=== PATIENT | male | born 1930 | race Caucasian/White ===

== ENCOUNTER → 2017-10-01 | Outpatient (CLI) | payer MEDICARE, OTHER ==
[~2017-10-01] MED LIST: ACET325S8 PO; CALTTAB PO; DIPH2%T PO; FLUN25I; GLIP5 PO; LASI20TA PO; LORTA5 PO; MELO15TA2 PO; NICO2GUM68 TOP; PRIN5TAB PO; PROT40TA PO; SPIR25 PO; SYNT88TA PO; TAMS0.4C67 PO; XARE20TA PO; ZOCO40TA PO
--- NOTE | 2017-10-08 10:54 | RSPPFT ---
DATE OF PROCEDURE: 10/01/17 COMMENTS: Spirometry with FVC of 2.8 predicted 3.4, FEV1 of 1.8 predicted 2.6, FEV1/FVC ratio 65% predicted 76%. The RV/TLC ratio is increased implying air trapping and a significant increase in airways resistance with RAW at 6.6 predicted 1.1. DLCO is 54% of predicted but within the predicted range when corrected for alveolar volume. IMPRESSION: On the basis of the above, patient has an obstructive lung defect with increased airways resistance and increased DLCO.
== END ==
LOC: HRSP 09:39
PROVIDERS: ATTEND Internal Medicine Cardiovascular Disease
DX: R06.02 Shortness of breath (principal)
CPT/HCPCS: 94060; 94726; 94729

== ENCOUNTER 2017-11-08 14:56 | Observation (INO) | payer MEDICARE, OTHER ==
[~2017-11-08] VITALS: Ht 175.3 cm; Wt 75.5 kg
[2017-11-08] VITALS (8 sets, daily range): BP systolic 97–123; BP diastolic 57–70; PULSE 58–74; RESP 16–20; TEMP 98.2–98.4; O2SAT 90–100
[2017-11-08 16:14] LABS: BASOPHIL # 0.1 TH/MM3 (0-0.2); BASOPHIL % 0.5 % (0.0-2.0); EOSINOPHIL # 0.1 TH/MM3 (0-0.4); EOSINOPHIL % 0.6 % (0.0-4.0); HEMATOCRIT 33.4 % (39.0-51.0); HEMOGLOBIN 10.3 GM/DL (13.0-17.0); LYMPH % 4.2 % (9.0-44.0); LYMPHOCYTE # 0.4 TH/MM3 (1.0-4.8); MEAN CELL VOLUME 73.6 FL (80.0-100.0); MEAN CORPUSCULAR HEMOGLOBIN 22.7 PG (27.0-34.0); MEAN CORPUSCULAR HGB CONC 30.8 % (32.0-36.0); MEAN PLATELET VOLUME 7.7 FL (7.0-11.0); MONO % 3.9 % (0.0-8.0); MONOCYTE # 0.4 TH/MM3 (0-0.9); NEUT % 90.8 % (16.0-70.0); PLATELET COUNT 435 TH/MM3 (150-450); RED BLOOD COUNT 4.54 MIL/MM3 (4.50-5.90); RED CELL DISTRIBUTION WIDTH 17.8 % (11.6-17.2)
[2017-11-08 16:24] LABS: INTERNATIONAL NORMALIZED RATIO 1.6 RATIO; PROTHROMBIN TIME - PATIENT 16.1 SEC (9.8-11.6)
[2017-11-08] MEDS ORDERED: GLIP5TAB8 PO (16:26)
[2017-11-08] MEDS ORDERED: LEVO88TA2 PO (16:26)
[2017-11-08] MEDS ORDERED: FURO20TA PO (16:26)
[2017-11-08 16:31] LABS: ALBUMIN 3.1 GM/DL (3.4-5.0); ALT (GPT) 138 U/L (12-78); AST (GOT) 127 U/L (15-37); BICARBONATE 27.6 MEQ/L (21.0-32.0); BLOOD UREA NITROGEN 43 MG/DL (7-18); CALCIUM 9.4 MG/DL (8.5-10.1); CHLORIDE 106 MEQ/L (98-107); GLOMERULAR FILTRATION RATE 34 ML/MIN (>89); GLUCOSE,RANDOM 94 MG/DL (74-106); MAGNESIUM 2.6 MG/DL (1.5-2.5); SODIUM (NA) 142 MEQ/L (136-145)
[2017-11-08 16:34] LABS: ALKALINE PHOSPHATASE 105 U/L (45-117); TOTAL BILIRUBIN ADULT 1.6 MG/DL (0.2-1.0); TOTAL PROTEIN 7.2 GM/DL (6.4-8.2); TROPONIN I 0.03 NG/ML (0.02-0.05)
--- NOTE | 2017-11-08 17:07 | RADRPT ---
EXAM DATE/TIME: 11/08/2017 16:40 [place] COMPARISON: No previous studies available for comparison. INDICATIONS : Shortness of breath for one week. MEDICAL HISTORY : None. SURGICAL HISTORY : Pacemaker. ENCOUNTER: Initial ACUITY: 1 day PAIN SCORE: 0/10 LOCATION: Bilateral chest FINDINGS: Diffuse prominent interstitial markings in the mid and upper lungs suggesting nonconsolidated interst itial infiltrates. The heart is mildly enlarged. Both hemidiaphragms remain fairly well delineated. M ild blunting of the left costophrenic angle suggests small pleural effusion. Cardiac pacer with [address] No evidence of pneumothorax. CONCLUSION: 1. Bilateral upper lung interstitial infiltrates. 2. Probable small left pleural effusion. Alhaji Brady MD on November 08, 2017 at 17:05 Board Certified Radiologist. This report was verified electronically.
[2017-11-08] MEDS ORDERED: FENO1TAB76 PO (17:26)
[2017-11-08] MEDS ORDERED: XARE15TA PO (17:26)
[2017-11-08] MEDS ORDERED: ATOR80TA45 PO (17:26)
[2017-11-08] MEDS ORDERED: TAMS5CAP PO (17:26)
[2017-11-08] MEDS ORDERED: RANI150T PO (17:26)
[2017-11-08] MEDS ORDERED: PACE400T PO (17:26)
[2017-11-08] MEDS ORDERED: AZITHROMYCIN INJ 500 MG in SODIUM CHLOR 0.9% 250 ML INJ 250 ML IV ONE (18:15)
[2017-11-08] MEDS ORDERED: cefTRIAXone INJ 1,000 MG in SODIUM CHLORIDE 0.9% INJ 100 ML IV ONE (18:15)
--- NOTE | 2017-11-08 18:15 | PD ---
HPI Chief Complaint: Respiratory Symptoms Time Seen by Provider: 16:21 Travel History International Travel<30 days: No Contact w/Intl Traveler<30days: No Traveled to known affect area: No History of Present Illness HPI 87 years old male arrives from the [place] due to shortness of breath bilateral lower extremity edema and low O2 sats. Evidently he has been gradually worsening over the past few weeks. Patient reports dyspnea on exertion and orthopnea. He reports a history of CHF and has been compliant Lasix. Urination has been normal. No cough or fever. PFSH Past Medical History Arthritis: Yes Heart Rhythm Problems: Yes (PACEMAKER medtronic) Cancer: Yes (PROSTRATE) Cardiovascular Problems: Yes (2 STENTS 2007) High Cholesterol: Yes Chemotherapy: No Diabetes: Yes Patient Takes Glucophage: No Endocrine: Yes Gastrointestinal Disorders: Yes GERD: Yes Glaucoma: No Genitourinary: Yes Hepatitis: No Hiatal Hernia: Yes Hypertension: Yes Immune Disorder: No Implanted Vascular Access Dvce: Yes Medical other: Yes Musculoskeletal: Yes Neurologic: Yes Psychiatric: No Reproductive: No Respiratory: No Radiation Therapy: Yes Thyroid Disease: Yes Ulcer: Yes Past Surgical History Abdominal Surgery: Yes Body Medical Devices: CARDIAC STENTS Cardiac Surgery: Yes (2 STENT, PACEMAKER, ABLATIONS (X2) ) Ear Surgery: No Endocrine Surgery: Yes (PARATHYROIDECTOMY) Eye Surgery: Yes (NAZARIO. CATARACT EXTRACT.) Genitourinary Surgery: Yes (VASECTOMY, PROSTATE SEED IMPL) Gynecologic Surgery: No Neurologic Surgery: No Oral Surgery: Yes (UPPP) Pacemaker: No Thoracic Surgery: No Other Surgery: Yes Social History Alcohol Use: Yes (SOCIAL) Tobacco Use: No (quit 45 years ago) Substance Use: No Allergies-Medications (Allergen,Severity, Reaction): Coded Allergies: bacitracin (Unverified Allergy, Severe, RASH. SKIN BREAKDOWN, 06/25/17) iodine (Unverified Allergy, Severe, 06/25/17) HIVES,SWELLING potassium iodide (Unverified Allergy, Severe, 06/25/17) HIVES,SWELLING povidone-iodine (Unverified Allergy, Severe, 06/25/17) HIVES,SWELLING sodium iodide (Unverified Allergy, Severe, 06/25/17) HIVES,SWELLING sodium iodide (Unverified Allergy, Severe, 06/25/17) HIVES,SWELLING Reported Meds & Prescriptions Reported Meds & Active Scripts Active Reported Pacerone (Amiodarone HCl) 400 Mg Tab 400 Mg PO DAILY Tricor (Fenofibrate) 48 Mg Tab 48 Mg PO DAILY Tke with food. Ranitidine (Ranitidine HCl) 150 Mg Tab 150 Mg PO DAILY Atorvastatin (Atorvastatin Calcium) 80 Mg Tab 80 Mg PO HS Flomax (Tamsulosin HCl) 0.4 Mg Cap 0.4 Mg PO HS Xarelto (Rivaroxaban) 15 Mg Tab 15 Mg PO DAILY Levothyroxine (Levothyroxine Sodium) 88 Mcg Tab 88 Mcg PO DAILY Glipizide 5 Mg Tab 5 Mg PO DAILY Take 30 minutes before a meal Furosemide 20 Mg Tab 20 Mg PO DAILY Review of Systems Except as stated in HPI: all other systems reviewed are Neg General / Constitutional: No: Fever Physical Exam Narrative GENERAL: 87-year-old male pleasant well-nourished well-developed no acute distress SKIN: Warm and dry. HEAD: Atraumatic. Normocephalic. EYES: Pupils equal and round. No scleral icterus. No injection or drainage. ENT: No nasal bleeding or discharge. Mucous membranes pink and moist. NECK: Trachea midline. No JVD. CARDIOVASCULAR: Regular rate and rhythm. RESPIRATORY: No accessory muscle use. Clear to auscultation. Breath sounds equal bilaterally. GASTROINTESTINAL: Abdomen soft, non-tender, nondistended. Hepatic and splenic margins not palpable. MUSCULOSKELETAL: Trace edema bilaterally. No warmth erythema or induration on either side. NEUROLOGICAL: Awake and alert. No obvious cranial nerve deficits. Motor grossly within normal limits. Five out of 5 muscle strength in the arms and legs. Normal speech. PSYCHIATRIC: Appropriate mood and affect; insight and judgment normal. Data Data Last Documented VS Vital Signs Date Time Temp Pulse Resp B/P (MAP) Pulse Ox O2 Delivery O2 Flow Rate FiO2 11/08/17 17:29 59 18 123/70 (87) 99 Nasal Cannula 2.00 11/08/17 14:57 98.4 VS reviewed Orders Orders Complete Blood Count With Diff (11/08/17 15:03) Comprehensive Metabolic Panel (11/08/17 15:03) B-Type Natriuretic Peptide (11/08/17 15:03) Act Partial Throm Time (Ptt) (11/08/17 15:03) Prothrombin Time / Inr (Pt) (11/08/17 15:03) Magnesium (Mg) (11/08/17 15:03) Ckmb (Isoenzyme) Profile (11/08/17 15:03) Troponin I (11/08/17 15:03) Electrocardiogram (11/08/17 15:03) Chest, Pa & Lat (11/08/17 15:03) CKMB (11/08/17 15:50) CKMB% (11/08/17 15:50) Blood Culture (11/08/17 18:03) Ceftriaxone Inj (Rocephin Inj) (11/08/17 18:15) Azithromycin Inj (Zithromax Inj) (11/08/17 18:15) Furosemide Inj (Lasix Inj) (11/08/17 18:45) Place In Observation (11/08/17 ) Vital Signs (Adult) Q4H (11/08/17 18:43) Activity Oob With Assistance (11/08/17 18:43) Diet Heart Healthy (11/08/17 Dinner) Sodium Chloride 0.9% Flush (Ns Flush) (11/08/17 18:45) Sodium Chloride 0.9% Flush (Ns Flush) (11/08/17 21:00) Acetaminophen (Tylenol) (11/08/17 18:45) Basic Metabolic Panel (Bmp) (11/09/17 06:00) Comprehensive Metabolic Panel (11/09/17 06:00) Naloxone Inj (Narcan Inj) (11/08/17 18:45) Docusate Sodium-Senna (Lanny-Colace) (11/08/17 21:00) Magnesium Hydroxide Liq (Milk Of Magnesi (11/08/17 18:45) Sennosides (Senokot) (11/08/17 18:45) Bisacodyl Supp (Dulcolax Supp) (11/08/17 18:45) Lactulose Liq (Lactulose Liq) (11/08/17 18:45) Enoxaparin Inj (Lovenox Inj) (11/08/17 19:00) Furosemide Inj (Lasix Inj) (11/09/17 09:00) Comprehensive Metabolic Panel (11/08/17 18:57) Ceftriaxone Inj (Rocephin Inj) (11/09/17 19:00) Azithromycin Inj (Zithromax Inj) (11/09/17 19:00) Admit Order (Ed Use Only) (11/08/17 ) Telephone Clerk Telegraph Office / Telemetry AURA.Q8H (11/08/17 19:14) Vital Signs (Adult) Q4H (11/08/17 19:14) Diet Heart Healthy (11/09/17 Breakfast) Activity Bed Rest (11/08/17 19:14) Labs Laboratory Tests Test 11/08/17 15:50 White Blood Count 10.0 TH/MM3 Red Blood Count 4.54 MIL/MM3 Hemoglobin 10.3 GM/DL Hematocrit 33.4 % Mean Corpuscular Volume 73.6 FL Mean Corpuscular Hemoglobin 22.7 PG Mean Corpuscular Hemoglobin Concent 30.8 % Red Cell Distribution Width 17.8 % Platelet Count 435 TH/MM3 Mean Platelet Volume 7.7 FL Neutrophils (%) (Auto) 90.8 % Lymphocytes (%) (Auto) 4.2 % Monocytes (%) (Auto) 3.9 % Eosinophils (%) (Auto) 0.6 % Basophils (%) (Auto) 0.5 % Neutrophils # (Auto) 9.0 TH/MM3 Lymphocytes # (Auto) 0.4 TH/MM3 Monocytes # (Auto) 0.4 TH/MM3 Eosinophils # (Auto) 0.1 TH/MM3 Basophils # (Auto) 0.1 TH/MM3 CBC Comment DIFF FINAL Differential Comment Prothrombin Time 16.1 SEC Prothromb Time International Ratio 1.6 RATIO Activated Partial Thromboplast Time 30.8 SEC Blood Urea Nitrogen 43 MG/DL Creatinine 1.90 MG/DL Random Glucose 94 MG/DL Total Protein 7.2 GM/DL Albumin 3.1 GM/DL Calcium Level 9.4 MG/DL Magnesium Level 2.6 MG/DL Alkaline Phosphatase 105 U/L Aspartate Amino Transf (AST/SGOT) 127 U/L Alanine Aminotransferase (ALT/SGPT) 138 U/L Total Bilirubin 1.6 MG/DL Sodium Level 142 MEQ/L Potassium Level 3.9 MEQ/L Chloride Level 106 MEQ/L Carbon Dioxide Level 27.6 MEQ/L Anion Gap 8 MEQ/L Estimat Glomerular Filtration Rate 34 ML/MIN Total Creatine Kinase 114 U/L Creatine Kinase MB 3.8 NG/ML Troponin I 0.03 NG/ML B-Type Natriuretic Peptide 894 PG/ML MDM Medical Decision Making Medical Screen Exam Complete: Yes Emergency Medical Condition: Yes Medical Record Reviewed: Yes Differential Diagnosis CHF, COPD, NSTEMI, anemia Narrative Course CBC & BMP Diagram 11/08/17 15:50 Total Protein 7.2, Albumin 3.1 L, Calcium Level 9.4, Magnesium Level 2.6 H, Alkaline Phosphatase 105, Aspartate Amino Transf (AST/SGOT) 127 H, Alanine Aminotransferase (ALT/SGPT) 138 H, Total Bilirubin 1.6 H CXR: possible interstitial infiltrates bilaterally admission for management of chf with possible pna d/w Dr Haynes Diagnosis Primary Impression: CHF (congestive heart failure) Additional Impression: PNA (pneumonia) Yayo Castro MD Nov 08, 2017 18:15
[2017-11-08] MEDS ORDERED: BISACODYL 10 MG SUPP RECTAL PRN (18:45)
[2017-11-08] MEDS ORDERED: SENNOSIDES 8.6 MG TAB PO PRN (18:45)
[2017-11-08] MEDS ORDERED: NALOXONE HCL 0.4 MG/ML AMP IV PUSH PRN (18:45)
[2017-11-08] MEDS ORDERED: LACTULOSE SYRUP 20 GM/30 ML CUP PO PRN (18:45)
[2017-11-08] MEDS ORDERED: SODIUM CHLORIDE 0.9% FLUSH 10 ML FLUSH IV FLUSH PRN (18:45)
[2017-11-08] MEDS ORDERED: ACETAMINOPHEN 325 MG TAB PO PRN (18:45)
[2017-11-08] MEDS ORDERED: MAGNESIUM HYDROXIDE SUSP 30 ML CUP PO PRN (18:45)
[2017-11-08] MEDS ORDERED: FUROSEMIDE 40 MG/4 ML VIAL IV PUSH ONE (18:45)
[2017-11-08] MEDS ORDERED: ENOXAPARIN SODIUM 30 MG/0.3 ML SYRINGE SQ SCH (19:00)
--- NOTE | 2017-11-08 19:41 | HHI.HP ---
HPI Service [facility] Primary Care Physician No Primary Care Physician Admission Diagnosis CHF Exacerbation; PNA Diagnoses: (1) CHF (congestive heart failure) Diagnosis: Principal (2) Renal insufficiency Diagnosis: Principal (3) A-fib Diagnosis: Principal (4) PNA (pneumonia) Diagnosis: Principal (5) DM (diabetes mellitus) Diagnosis: Principal Travel History International Travel<30 Days: No Contact w/Intl Traveler <30 Da: No Traveled to Known Affected Are: No History of Present Illness This is an 87-year-old male with a PMH of HTN, Hyperlipidemia, CAD s/p Stent, Pacemaker (Medtronic), CHF (Unknown EF), Prostate CA and DM [facility] to [facility]B and bilateral lower extremity edema. Per patient, symptoms have been ongoing for 1-2wks, now progressively worse over the last 1- 2 days. SOB mostly w/ exertion, improved at rest. Moderate severity. Denies fever, chills, cough or chest pain. On arrival, BP 114/57, HR 74, O2 sat 90% on RA, Afebrile. Hgb 10.3, previously 13.7 on 06/23/14. Creatinine 1.90, producing 1.70 on 06/24/14. Troponin 0.03. BNP 894. CXR bilateral upper lung interstitial infiltrates, probable small left pleural effusion. S/p Lasix 40mg IV and Rocephin/Zithro in ER. Review of Systems Except as stated in HPI: all other systems reviewed are Neg ROS: 14 point review of systems otherwise negative. Past Family Social History Past Medical History PMH: HTN, Hyperlipidemia, CAD s/p Stent, Pacemaker (Medtronic), CHF (Unknown EF ), Prostate CA and DM Past Surgical History PAST SURGICAL HISTORY: Cardiac Stent, Pacemaker, Parathyroidectomy, Bilateral Cataract Surgery, Vasectomy, Prostate Seeds Allergies: Coded Allergies: bacitracin (Unverified Allergy, Severe, RASH. SKIN BREAKDOWN, 06/25/17) iodine (Unverified Allergy, Severe, 06/25/17) HIVES,SWELLING potassium iodide (Unverified Allergy, Severe, 06/25/17) HIVES,SWELLING povidone-iodine (Unverified Allergy, Severe, 06/25/17) HIVES,SWELLING sodium iodide (Unverified Allergy, Severe, 06/25/17) HIVES,SWELLING sodium iodide (Unverified Allergy, Severe, 06/25/17) HIVES,SWELLING Family History PAST FAMILY HISTORY: Reviewed, positive for DM. Social History PAST SOCIAL HISTORY: Occasional alcohol. Negative for tobacco or drugs. Physical Exam Vital Signs Vital Signs Date Time Temp Pulse Resp B/P (MAP) Pulse Ox O2 Delivery O2 Flow Rate FiO2 11/08/17 17:29 59 18 123/70 (87) 99 Nasal Cannula 2.00 11/08/17 16:17 63 18 99 Room Air 11/08/17 15:18 61 20 100 Nasal Cannula 2.00 11/08/17 15:05 90 Nasal Cannula 2.00 11/08/17 14:57 98.4 74 16 114/57 (76) 90 Room Air Physical Exam PE: GENERAL: Pleasant elderly white male in no acute distress. HEENT: PERRLA, EOMI. No scleral icterus or conjunctival pallor. No lid lag or facial droop. CARDIOVASCULAR: Regular rate and rhythm. No obvious murmurs to auscultation. No chest tenderness to palpation. RESPIRATORY: No obvious rhonchi or wheezing. Clear to auscultation. Breath sounds equal bilaterally. GASTROINTESTINAL: Abdomen soft, non-tender, nondistended. BS normal. MUSCULOSKELETAL: Extremities without clubbing, cyanosis. 1+ edema. No obvious deformities. NEUROLOGICAL: Awake, alert and oriented x4. No focal neurologic deficits. Moving both upper and lower extremities spontaneously. Laboratory Laboratory Tests Test 11/08/17 15:50 White Blood Count 10.0 Red Blood Count 4.54 Hemoglobin 10.3 Hematocrit 33.4 Mean Corpuscular Volume 73.6 Mean Corpuscular Hemoglobin 22.7 Mean Corpuscular Hemoglobin Concent 30.8 Red Cell Distribution Width 17.8 Platelet Count 435 Mean Platelet Volume 7.7 Neutrophils (%) (Auto) 90.8 Lymphocytes (%) (Auto) 4.2 Monocytes (%) (Auto) 3.9 Eosinophils (%) (Auto) 0.6 Basophils (%) (Auto) 0.5 Neutrophils # (Auto) 9.0 Lymphocytes # (Auto) 0.4 Monocytes # (Auto) 0.4 Eosinophils # (Auto) 0.1 Basophils # (Auto) 0.1 CBC Comment DIFF FINAL Differential Comment Prothrombin Time 16.1 Prothromb Time International Ratio 1.6 Activated Partial Thromboplast Time 30.8 Blood Urea Nitrogen 43 Creatinine 1.90 Random Glucose 94 Total Protein 7.2 Albumin 3.1 Calcium Level 9.4 Magnesium Level 2.6 Alkaline Phosphatase 105 Aspartate Amino Transf (AST/SGOT) 127 Alanine Aminotransferase (ALT/SGPT) 138 Total Bilirubin 1.6 Sodium Level 142 Potassium Level 3.9 Chloride Level 106 Carbon Dioxide Level 27.6 Anion Gap 8 Estimat Glomerular Filtration Rate 34 Total Creatine Kinase 114 Creatine Kinase MB 3.8 Troponin I 0.03 B-Type Natriuretic Peptide 894 Date/Time Source Procedure Growth Status 11/08/17 18:28 Blood Peripheral Aerobic Blood Culture Pending Received 11/08/17 18:28 Blood Peripheral Anaerobic Blood Culture Pending Received Result Diagram: 11/08/17 1550 11/08/17 1550 Caprini VTE Risk Assessment Caprini VTE Risk Assessment: Mod/High Risk (score >= 2) Caprini Risk Assessment Model Point Value = 1 Point Value = 2 Point Value = 3 Point Value = 5 Age 41-60 Minor surgery BMI > 25 kg/m2 Swollen legs Varicose veins or History of unexplained or recurrent spontaneous Oral contraceptives or hormone replacement Sepsis (< 1 month) Serious lung disease, including pneumonia (< 1 month) Abnormal pulmonary function Acute myocardial infarction Congestive heart failure (< 1 month) History of inflammatory bowel disease Medical patient at bed rest Age 61-74 Arthroscopic surgery Major open surgery (> 45 min) Laparoscopic surgery (> 45 min) Malignancy Confined to bed (> 72 hours) Immobilizing plaster cast Central venous access Age >= 75 History of VTE Family history of VTE Factor V Leiden Prothrombin [id number] Lupus anticoagulant Anticardiolipin antibodies Elevated serum homocysteine Heparin-induced thrombocytopenia Other congenital or acquired thrombophilia Stroke (< 1 month) Elective arthroplasty Hip, pelvis, or leg fracture Acute spinal cord injury (< 1 month) Prophylaxis Regimen Total Risk Factor Score Risk Level Prophylaxis Regimen 0-1 Low Early ambulation 2 Moderate Order ONE of the following: *Sequential Compression Device (SCD) *Heparin 5000 units SQ BID 3-4 Higher Order ONE of the following medications: *Heparin 5000 units SQ TID *Enoxaparin/Lovenox 40 mg SQ daily (WT < 150 kg, CrCl > 30 mL/min) *Enoxaparin/Lovenox 30 mg SQ daily (WT < 150 kg, CrCl > 10-29 mL/min) *Enoxaparin/Lovenox 30 mg SQ BID (WT < 150 kg, CrCl > 30 mL/min) AND/OR *Sequential Compression Device (SCD) 5 or more Highest Order ONE of the following medications: *Heparin 5000 units SQ TID (Preferred with Epidurals) *Enoxaparin/Lovenox 40 mg SQ daily (WT < 150 kg, CrCl > 30 mL/min) *Enoxaparin/Lovenox 30 mg SQ daily (WT < 150 kg, CrCl > 10-29 mL/min) *Enoxaparin/Lovenox 30 mg SQ BID (WT < 150 kg, CrCl > 30 mL/min) AND *Sequential Compression Device (SCD) Assessment and Plan Problem List: (1) CHF (congestive heart failure) ICD Code: I50.9 - Heart failure, unspecified Status: Acute (2) PNA (pneumonia) ICD Code: J18.9 - Pneumonia, unspecified organism Status: Acute (3) Renal insufficiency ICD Code: N28.9 - Disorder of kidney and ureter, unspecified (4) A-fib ICD Code: I48.91 - Unspecified atrial fibrillation (5) DM (diabetes mellitus) ICD Code: E11.9 - Type 2 diabetes mellitus without complications Assessment and Plan A/P: 1. CHF: Acute on Chronic. EF unknown. Check Echo to eval for systolic/ diastolic dysfunction and EF. BNP 894, CXR w/ small pleural effusion, images reviewed by me. S/p Lasix 40mg IV in ER, continue w/ diuresis-caution w/ renal insufficiency, monitor I/O. 2. PNA: CXR w/ upper lung interstitial infiltrates, images reviewed by me. S/ p Rocephin/Zithro in ER, continue w/ IV Abx, DuoNeb prn as needed. Monitor O2. 3. Renal Insufficiency: Acute on Chronic. Creatinine 1.90, previously 1.70 on 06/24/14. Check U/a. Repeat labs in am, monitor I/O. 4. A-fib: Chronic. Resume home Amiodarone, Xarelto. Telemetry. 5. DM: Sliding scale w/ Accu-Cheks, resume Glipizide. 6. DVT Prophylaxis: Xarelto 7. Social work for d/c planning as needed. 8. Records/labs reviewed by me, case discussed w/ ER physician at length. Obdulia Torres MD Nov 08, 2017 19:41
[2017-11-08] MEDS ORDERED: RESP: ALBUTEROL 2.5 MG/IPRATROPIUM 0.5 MG NEB (PRN) NEB (19:45)
[2017-11-08] MEDS ORDERED: DEXTROSE 50% IN WATER 50 ML VIAL(D50) IV PUSH PRN (19:45)
[2017-11-08] MEDS ORDERED: GLUCAGON 1 MG/ML VIAL OTHER PRN (19:45)
[2017-11-08] MEDS: DOCUSATE SODIUM 50 MG/SENNA 8.6 MG TAB PO SCH (21:00)
[2017-11-08] MEDS: INSULIN ASPART SUPPLEMENTAL SCALE SQ SCH (21:00)
[2017-11-08 21:47] LABS: ALBUMIN 2.9 GM/DL (3.4-5.0); ALT (GPT) 129 U/L (12-78); AST (GOT) 119 U/L (15-37); BICARBONATE 26.9 MEQ/L (21.0-32.0); BLOOD UREA NITROGEN 42 MG/DL (7-18); CHLORIDE 107 MEQ/L (98-107); CREATININE 1.93 MG/DL (0.60-1.30); GLOMERULAR FILTRATION RATE 33 ML/MIN (>89); GLUCOSE,RANDOM 58 MG/DL (74-106); SODIUM (NA) 144 MEQ/L (136-145)
[2017-11-08 21:50] LABS: ALKALINE PHOSPHATASE 98 U/L (45-117); TOTAL BILIRUBIN ADULT 1.5 MG/DL (0.2-1.0); TOTAL PROTEIN 6.9 GM/DL (6.4-8.2)
[2017-11-08] MEDS: ATORVASTATIN 80 MG TAB PO SCH (22:23)
[2017-11-08] MEDS: TAMSULOSIN HCL 0.4 MG CAP PO SCH (22:23)
[2017-11-08] MEDS: SODIUM CHLORIDE 0.9% FLUSH 10 ML FLUSH IV FLUSH SCH (22:25)
[2017-11-09] VITALS (27 sets, daily range): BP systolic 86–123; BP diastolic 53–71; PULSE 58–73; RESP 14–18; TEMP 97.4–98.6; O2SAT 93–99
[2017-11-09 04:53] LABS: AUTOMATED NEUTROPHIL # 7.9 TH/MM3 (1.8-7.7); BASOPHIL # 0.1 TH/MM3 (0-0.2); BASOPHIL % 0.7 % (0.0-2.0); EOSINOPHIL # 0.1 TH/MM3 (0-0.4); EOSINOPHIL % 0.8 % (0.0-4.0); HEMATOCRIT 26.8 % (39.0-51.0); HEMOGLOBIN 8.4 GM/DL (13.0-17.0); LYMPH % 4.2 % (9.0-44.0); LYMPHOCYTE # 0.4 TH/MM3 (1.0-4.8); MEAN CELL VOLUME 72.8 FL (80.0-100.0); MEAN CORPUSCULAR HEMOGLOBIN 22.9 PG (27.0-34.0); MEAN CORPUSCULAR HGB CONC 31.5 % (32.0-36.0); MEAN PLATELET VOLUME 7.6 FL (7.0-11.0); MONO % 5.9 % (0.0-8.0); MONOCYTE # 0.5 TH/MM3 (0-0.9); NEUT % 88.4 % (16.0-70.0); PLATELET COUNT 350 TH/MM3 (150-450); RED BLOOD COUNT 3.68 MIL/MM3 (4.50-5.90); RED CELL DISTRIBUTION WIDTH 17.7 % (11.6-17.2); WHITE BLOOD COUNT 8.9 TH/MM3 (4.0-11.0)
[2017-11-09 05:18] LABS: ALBUMIN 2.5 GM/DL (3.4-5.0); ALT (GPT) 104 U/L (12-78); AST (GOT) 97 U/L (15-37); BICARBONATE 29.5 MEQ/L (21.0-32.0); BLOOD UREA NITROGEN 43 MG/DL (7-18); CALCIUM 8.8 MG/DL (8.5-10.1); CHLORIDE 109 MEQ/L (98-107); CREATININE 1.86 MG/DL (0.60-1.30); GLOMERULAR FILTRATION RATE 35 ML/MIN (>89); GLUCOSE,RANDOM 107 MG/DL (74-106); SODIUM (NA) 146 MEQ/L (136-145)
[2017-11-09 05:21] LABS: ALKALINE PHOSPHATASE 89 U/L (45-117); TOTAL BILIRUBIN ADULT 1.1 MG/DL (0.2-1.0); TOTAL PROTEIN 5.8 GM/DL (6.4-8.2)
[2017-11-09] MEDS: LEVOTHYROXINE SODIUM 88 MCG TAB PO SCH (06:04)
[2017-11-09] MEDS: INSULIN ASPART SUPPLEMENTAL SCALE SQ SCH ×4 (08:00→21:00)
[2017-11-09] MEDS: DOCUSATE SODIUM 50 MG/SENNA 8.6 MG TAB PO SCH ×2 (09:00→21:11)
[2017-11-09] MEDS: FUROSEMIDE 40 MG/4 ML VIAL IV PUSH SCH ×2 (09:40→17:16)
[2017-11-09] MEDS: glipiZIDE 5 MG TAB PO SCH (09:40)
[2017-11-09] MEDS: FENOFIBRATE 48 MG TAB PO SCH (09:40)
[2017-11-09] MEDS: AMIODARONE 200 MG TAB PO SCH (09:40)
[2017-11-09] MEDS: FAMOTIDINE 20 MG TAB PO SCH (09:40)
[2017-11-09] MEDS: RIVAROXABAN 15 MG TAB PO SCH (09:41)
[2017-11-09] MEDS: SODIUM CHLORIDE 0.9% FLUSH 10 ML FLUSH IV FLUSH SCH ×2 (09:41→21:12)
[2017-11-09 12:04] LABS: BILIRUBIN, URINE NEG (NEG); BLOOD, URINE NEG (NEG); GLUCOSE,URINE NEG (NEG); HYALINE CAST, URINE 3 /lpf (RARE); KETONE, URINE NEG (NEG); MUCUS URINE FEW /lpf (OCC); NITRITE,URINE NEG (NEG); SQUAMOUS EPITHELIAL CELL URINE <1 /hpf (0-5); URINE COLOR LIGHT-YELLOW (YELLW/STRAW); URINE LEUKOCYTE ESTERASE NEG (NEG)
--- NOTE | 2017-11-09 17:43 | HHI.PR ---
Subjective Remarks 87M admitted under observation status for CHF exacerbation and likely pneumonia. He denies any fevers or malaise leading up to this, but does say that he had dyspnea worsening over 1-2 weeks. He is feeling better this morning after urinating out lots of fluid overnight. Objective Vitals Vital Signs Date Time Temp Pulse Resp B/P (MAP) Pulse Ox O2 Delivery O2 Flow Rate FiO2 11/09/17 17:00 60 11/09/17 16:00 60 11/09/17 15:00 59 11/09/17 15:00 60 14 123/70 (87) 96 11/09/17 14:00 59 11/09/17 13:00 60 11/09/17 12:00 59 11/09/17 11:00 59 11/09/17 11:00 98.6 60 16 108/62 (77) 95 11/09/17 10:00 67 11/09/17 09:00 61 11/09/17 08:00 97.4 63 16 86/69 (75) 98 11/09/17 08:00 69 11/09/17 07:00 60 11/09/17 06:00 64 11/09/17 05:00 58 11/09/17 04:30 67 18 90/53 (65) 95 11/09/17 04:00 58 11/09/17 03:00 60 11/09/17 02:00 60 11/09/17 01:00 58 11/09/17 00:06 60 16 95/53 (67) 93 11/09/17 00:00 60 11/08/17 23:00 59 11/08/17 22:00 58 11/08/17 21:00 98.2 68 16 97/57 (70) 96 11/08/17 20:55 61 11/08/17 20:14 11/08/17 20:00 98 Nasal Cannula 2.00 I/O 11/08/17 11/08/17 11/08/17 11/09/17 11/09/17 11/09/17 07:00 15:00 23:00 07:00 15:00 23:00 Intake Total 350 ml 400 ml 1680 ml Output Total 650 ml 1275 ml Balance 350 ml -250 ml 405 ml Intake Oral 400 ml 1680 ml IV Total 350 ml Output Urine Total 650 ml 1275 ml # Bowel Movements 0 Result Diagram: 11/09/1742511/09/17 042 Objective Remarks GENERAL: Well-nourished, well-developed patient. SKIN: Warm and dry. HEAD: Normocephalic. EYES: No scleral icterus. No injection or drainage. NECK: Supple, trachea midline. No JVD or lymphadenopathy. CARDIOVASCULAR: Regular rate and rhythm without murmurs, gallops, or rubs. RESPIRATORY: Breath sounds equal bilaterally. No accessory muscle use. GASTROINTESTINAL: Abdomen soft, non-tender, nondistended. MUSCULOSKELETAL: No cyanosis, or edema. BACK: Nontender without obvious deformity. No CVA tenderness. EXTREMITIES: no edema A/P Problem List: (1) CHF (congestive heart failure) ICD Code: I50.9 - Heart failure, unspecified Status: Acute (2) PNA (pneumonia) ICD Code: J18.9 - Pneumonia, unspecified organism Status: Acute (3) Renal insufficiency ICD Code: N28.9 - Disorder of kidney and ureter, unspecified (4) A-fib ICD Code: I48.91 - Unspecified atrial fibrillation (5) DM (diabetes mellitus) ICD Code: E11.9 - Type 2 diabetes mellitus without complications Assessment and Plan CHF Exacerbation Based on history and BNP, responded favorably to diuretics Ambulate with PT in preparation for discharge soon Pneumonia Community aquired Continue Rocephin and Azithromycin Atrial Fibrillation Stable Type 2 diabetes Stable DVT Prophylaxis Mohan Oconnor MD Nov 09, 2017 17:43
[2017-11-09 20:06] LABS: ALBUMIN 2.5 GM/DL (3.4-5.0); AST (GOT) 91 U/L (15-37); BICARBONATE 26.7 MEQ/L (21.0-32.0); BLOOD UREA NITROGEN 40 MG/DL (7-18); CALCIUM 8.7 MG/DL (8.5-10.1); CHLORIDE 106 MEQ/L (98-107); CREATININE 1.65 MG/DL (0.60-1.30); GLOMERULAR FILTRATION RATE 40 ML/MIN (>89); GLUCOSE,RANDOM 72 MG/DL (74-106); SODIUM (NA) 142 MEQ/L (136-145)
[2017-11-09 20:07] LABS: ALT (GPT) 99 U/L (12-78)
[2017-11-09 20:09] LABS: ALKALINE PHOSPHATASE 88 U/L (45-117); TOTAL BILIRUBIN ADULT 1.1 MG/DL (0.2-1.0); TOTAL PROTEIN 6.1 GM/DL (6.4-8.2)
[2017-11-09] MEDS: ATORVASTATIN 80 MG TAB PO SCH (21:11)
[2017-11-09] MEDS: TAMSULOSIN HCL 0.4 MG CAP PO SCH (21:12)
[2017-11-09] MEDS: AZITHROMYCIN INJ 500 MG in SODIUM CHLOR 0.9% 250 ML INJ 250 ML IV SCH (21:13)
[2017-11-09] MEDS: cefTRIAXone INJ 1,000 MG in SODIUM CHLORIDE 0.9% INJ 100 ML IV SCH (21:13)
[2017-11-10] VITALS (27 sets, daily range): BP systolic 99–122; BP diastolic 62–74; PULSE 58–79; RESP 16–18; TEMP 97.8–97.9; O2SAT 94–97
[2017-11-10] MEDS: LEVOTHYROXINE SODIUM 88 MCG TAB PO SCH (06:16)
[2017-11-10] MEDS: INSULIN ASPART SUPPLEMENTAL SCALE SQ SCH ×4 (08:00→21:00)
[2017-11-10] MEDS: AMIODARONE 200 MG TAB PO SCH (10:52)
[2017-11-10] MEDS: SODIUM CHLORIDE 0.9% FLUSH 10 ML FLUSH IV FLUSH SCH ×2 (10:52→23:30)
[2017-11-10] MEDS: RIVAROXABAN 15 MG TAB PO SCH (10:52)
[2017-11-10] MEDS: FAMOTIDINE 20 MG TAB PO SCH (10:52)
[2017-11-10] MEDS: glipiZIDE 5 MG TAB PO SCH (10:52)
[2017-11-10] MEDS: FENOFIBRATE 48 MG TAB PO SCH (10:52)
[2017-11-10] MEDS: FUROSEMIDE 40 MG/4 ML VIAL IV PUSH SCH ×2 (10:52→18:05)
[2017-11-10] MEDS: DOCUSATE SODIUM 50 MG/SENNA 8.6 MG TAB PO SCH ×2 (10:52→23:31)
--- NOTE | 2017-11-10 14:32 | EKG ---
Date Performed: 11/08/2017 Time Performed: 15:58:15 PTAGE: 87 years EKG: ELECTRONIC ATRIAL PACEMAKER ELECTRONIC VENTRICULAR PACEMAKER Compared to prior tracing no s ignificant change ABNORMAL RHYTHM ECG PREVIOUS TRACING : 06/24/2014 06.31 DOCTOR: Regulo Mcduffie Interpretating Date/Time 11/10/2017 14:30:15
--- NOTE | 2017-11-10 15:18 | HHI.PR ---
Subjective Remarks Pt was evaluated by physical therapy, could not ambulate far without needing oxygen. This does not match his physical exam which shows mostly clear lung jade. Objective Vitals Vital Signs Date Time Temp Pulse Resp B/P (MAP) Pulse Ox O2 Delivery O2 Flow Rate FiO2 11/10/17 12:00 60 11/10/17 11:00 61 16 122/74 (90) 96 11/10/17 11:00 61 11/10/17 10:00 60 11/10/17 09:00 78 11/10/17 08:00 79 11/10/17 08:00 97.8 64 16 122/68 (86) 96 11/10/17 07:00 60 11/10/17 06:17 97.9 67 16 117/67 (84) 94 11/10/17 06:00 67 11/10/17 05:00 63 11/10/17 04:00 60 11/10/17 03:00 59 11/10/17 02:00 60 11/10/17 01:00 59 11/10/17 00:00 58 11/09/17 23:43 97.9 73 16 102/57 (72) 95 11/09/17 23:00 60 11/09/17 22:00 58 11/09/17 21:00 60 11/09/17 20:00 65 11/09/17 20:00 97.9 65 16 119/71 (87) 99 11/09/17 19:00 59 11/09/17 18:00 59 11/09/17 17:00 60 11/09/17 16:00 60 I/O 11/09/17 11/09/17 11/09/17 11/10/17 11/10/17 11/10/17 07:00 15:00 23:00 07:00 15:00 23:00 Intake Total 400 ml 1780 ml 240 ml Output Total 650 ml 1275 ml 200 ml Balance -250 ml 505 ml 40 ml Intake Oral 400 ml 1680 ml 240 ml IV Total 100 ml Output Urine Total 650 ml 1275 ml 200 ml Stool Total 0 ml # Voids 1 # Bowel Movements 0 Result Diagram: 11/09/17 0426 11/09/171928 Objective Remarks GENERAL: Well-nourished, well-developed patient. SKIN: Warm and dry. HEAD: Normocephalic. EYES: No scleral icterus. No injection or drainage. NECK: Supple, trachea midline. No JVD or lymphadenopathy. CARDIOVASCULAR: Regular rate and rhythm without murmurs, gallops, or rubs. RESPIRATORY: Breath sounds equal bilaterally. No accessory muscle use. GASTROINTESTINAL: Abdomen soft, non-tender, nondistended. MUSCULOSKELETAL: No cyanosis, or edema. BACK: Nontender without obvious deformity. No CVA tenderness. EXTREMITIES: no edema A/P Problem List: (1) CHF (congestive heart failure) ICD Code: I50.9 - Heart failure, unspecified Status: Acute (2) PNA (pneumonia) ICD Code: J18.9 - Pneumonia, unspecified organism Status: Acute (3) Renal insufficiency ICD Code: N28.9 - Disorder of kidney and ureter, unspecified (4) A-fib ICD Code: I48.91 - Unspecified atrial fibrillation (5) DM (diabetes mellitus) ICD Code: E11.9 - Type 2 diabetes mellitus without complications Assessment and Plan CHF Exacerbation BNP improved, but patient remains oxygen dependant Did not ambulate very far with PT, needed oxygen Exam shows no ankle edema and lungs are clear Mismatch of exam and performance raises concern for pulmonary embolism, will check STAT D-Dimer Pneumonia Continue Rocephin and Azithromycin Atrial Fibrillation Stable Type 2 diabetes Stable DVT Prophylaxis Mohan Oconnor MD Nov 10, 2017 15:18
--- NOTE | 2017-11-10 19:04 | RADRPT ---
EXAM DATE/TIME: 11/10/2017 18:04 [facility] COMPARISON: No previous studies available for comparison. INDICATIONS : Bilateral leg swelling. MEDICAL HISTORY : Hypercholesterolemia. Gastroesophageal reflux disease. Thyroid disease. Dentures. Hiatal hernia. Ulc er. Prostate cancer. Arthritis. Diabetes. SURGICAL HISTORY : Pacemaker. Bilateral cataract removal. Cardiac stents. Parathyroidectomy. ENCOUNTER: Initial ACUITY: 1 day PAIN SCORE: 0/10 LOCATION: Bilateral legs. TECHNIQUE: Venous ultrasound of the left and right leg was performed from the inguinal ligament to the proximal calf. Real-time, color Doppler and spectral tracing, compression and augmentation techniques were us ed. FINDINGS: RIGHT LEG: There is normal compressibility of the deep venous system from the inguinal region to the proximal ca lf. No echogenic clot is seen in the lumen of the common femoral, femoral, popliteal, and posterior tibial veins. There is a normal response of the venous system to proximal and distal augmentation an d respiration. LEFT LEG: There is normal compressibility of the deep venous system from the inguinal region to the proximal ca lf. No echogenic clot is seen in the lumen of the common femoral, femoral, popliteal, and posterior tibial veins. There is a normal response of the venous system to proximal and distal augmentation an d respiration. CONCLUSION: Normal examination. Veda Alberts MD on November 10, 2017 at 19:02 Board Certified Radiologist. This report was verified electronically.
[2017-11-10] MEDS ORDERED: EPINEPHrine HCL (1:10,000) 1 MG/10 ML SYRINGE ONE (20:11)
[2017-11-10] MEDS ORDERED: ATROPINE SULFATE 1 MG/10 ML SYRINGE ONE (20:11)
--- NOTE | 2017-11-10 21:05 | RADRPT ---
EXAM DATE/TIME: 11/10/2017 20:25 [facility] COMPARISON: CHEST PA & LAT, November 08, 2017, 16:40. INDICATIONS : Short of Breath MEDICAL HISTORY : Gastroesophageal reflux disease Thyroid disease. Prostate cancer Diabetes. SURGICAL HISTORY : Pacemaker. Cardiac stents. Parathyroidectomy ENCOUNTER: Subsequent ACUITY: 1 day PAIN SCORE: 0/10 LOCATION: Bilateral chest FINDINGS: Left subclavian pacer wires are present with tips in the right atrium and right ventricle. Slight quita ateral parenchymal infiltrates mainly interstitial is identified not significantly changed. Slight ca rdiomegaly is seen. CONCLUSION: No appreciable change. Veda Alberts MD on November 10, 2017 at 21:02 Board Certified Radiologist. This report was verified electronically.
--- NOTE | 2017-11-10 21:06 | RADRPT ---
EXAM DATE/TIME: 11/10/2017 20:33 [facility] COMPARISON: CHEST PA & LAT, November 10, 2017, 20:25. INDICATIONS : Short of breath. DOSE: 8.2 mCi Tc99m MAA IV 2.9 mCi Tc99m DTPA aerosol MEDICAL HISTORY : Carcinoma, prostate. Hypertension. Smoking history. SURGICAL HISTORY : Coronary artery stent. ENCOUNTER: Initial ACUITY: 1 day PAIN SCALE: 2/10 LOCATION: Bilateral chest TECHNIQUE: Following five minutes of tidal breathing of DTPA aerosol, planar images of the lungs were performed in eight projections. The patient was then injected with MAA, and eight-view perfusion scan was perf ormed. FINDINGS: The ventilation is very patchy with multiple subsegmental ventilatory defects bilaterally correspondi ng to COPD changes and parenchymal infiltrates on the patient's chest x-ray. The perfusion demonstrat es matching defects in some of these areas. CONCLUSION: Low probability for pulmonary embolus. Veda Alberts MD on November 10, 2017 at 21:03 Board Certified Radiologist. This report was verified electronically.
[2017-11-10] MEDS: cefTRIAXone INJ 1,000 MG in SODIUM CHLORIDE 0.9% INJ 100 ML IV SCH (23:29)
[2017-11-10] MEDS: AZITHROMYCIN INJ 500 MG in SODIUM CHLOR 0.9% 250 ML INJ 250 ML IV SCH (23:29)
[2017-11-10] MEDS: TAMSULOSIN HCL 0.4 MG CAP PO SCH (23:30)
[2017-11-10] MEDS: ATORVASTATIN 80 MG TAB PO SCH (23:31)
[2017-11-11] VITALS (28 sets, daily range): BP systolic 108–132; BP diastolic 62–73; PULSE 58–122; RESP 16–18; TEMP 98–98.4; O2SAT 90–97
[2017-11-11] MEDS: LEVOTHYROXINE SODIUM 88 MCG TAB PO SCH (05:51)
[2017-11-11] MEDS: INSULIN ASPART SUPPLEMENTAL SCALE SQ SCH ×4 (08:00→21:00)
[2017-11-11] MEDS: FUROSEMIDE 40 MG/4 ML VIAL IV PUSH SCH ×2 (09:00→17:44)
[2017-11-11] MEDS: SODIUM CHLORIDE 0.9% FLUSH 10 ML FLUSH IV FLUSH SCH ×2 (09:00→19:45)
[2017-11-11] MEDS: glipiZIDE 5 MG TAB PO SCH (09:00)
[2017-11-11] MEDS: AMIODARONE 200 MG TAB PO SCH (09:44)
[2017-11-11] MEDS: RIVAROXABAN 15 MG TAB PO SCH (09:45)
[2017-11-11] MEDS: DOCUSATE SODIUM 50 MG/SENNA 8.6 MG TAB PO SCH ×2 (09:45→19:44)
[2017-11-11] MEDS: FENOFIBRATE 48 MG TAB PO SCH (09:45)
[2017-11-11] MEDS: FAMOTIDINE 20 MG TAB PO SCH (09:45)
[2017-11-11] MEDS ORDERED: RESP: ALBUTEROL 2.5 MG/IPRATROPIUM 0.5 MG NEB (SCH) NEB ONE (14:15)
[2017-11-11] MEDS ORDERED: methylPREDNISolone SOD SUCC 125 MG/2 ML VIAL IV PUSH ONE (14:30)
--- NOTE | 2017-11-11 15:59 | ECHRPT ---
Indication: HEART FAILURE CONCLUSIONS Mildly dilated left ventricle. Wall thickness is normal. The left ventricular systolic function is severely reduced with an estimated ejection fraction in th e range of 20%. The right ventriclar size is upper limits of normal. The right ventricular systoilc function is mildly decreased. A pacemaker wire is noted. The left atrial size is mildly dilated. The right atrial size is moderately dilated. Mild mitral valve regurgitation. Mild aortic valve regurgitation. There is severe tricuspid regurgitation. There is estimated moderate to severe pulmonary hypertension present (68 mmHg). The pulmonary valve is not well visualized. BP: 90 / 53 HR: 64 Rhythm: MEASUREMENTS (Male / Female) Normal Values Technical Quality:Good 2D ECHO LV Diastolic Diameter PLAX 5.9 cm 4.2 - 5.9 / 3.9 - 5.3 cm LV Systolic Diameter PLAX 5.3 cm IVS Diastolic Thickness 1.2 cm 0.6 - 1.0 / 0.6 - 0.9 cm LVPW Diastolic Thickness 0.7 cm 0.6 - 1.0 / 0.6 - 0.9 cm LV Relative Wall Thickness 0.3 RV Internal Dim ED PLAX 2.5 cm LA Systolic Diameter LX 3.9 cm 3.0 - 4.0 / 2.7 - 3.8 cm M-MODE Aortic Root Diameter MM 3.3 cm AV Cusp Separation MM 2.1 cm DOPPLER AV Peak Velocity 159.0 cm/s AV Peak Gradient 10.1 mmHg AI Peak Velocity 342.0 cm/s AI Peak Gradient 46.8 mmHg AI Pressure Half Time 711.0 ms LVOT Peak Velocity 78.0 cm/s LVOT Peak Gradient 2.4 mmHg Mitral E Point Velocity 80.0 cm/s Mitral A Point Velocity 52.8 cm/s Mitral E to A Ratio 1.5 TR Peak Velocity 413.0 cm/s TR Peak Gradient 68.2 mmHg FINDINGS LEFT VENTRICLE Mildly dilated left ventricle. Wall thickness is normal. The left ventricular systolic function is severely reduced with an estimated ejection fraction in th e range of 20%. RIGHT VENTRICLE The right ventriclar size is upper limits of normal. The right ventricular systoilc function is mildly decreased. A pacemaker wire is noted. LEFT ATRIUM The left atrial size is mildly dilated. RIGHT ATRIUM The right atrial size is moderately dilated. ATRIAL SEPTUM Normal atrial septal thickness without atrial level shunting by limited color doppler interrogation. AORTA The aortic root and proximal ascending aorta are normal in size on limited imaging. MITRAL VALVE Mild mitral valve regurgitation. AORTIC VALVE Mild aortic valve regurgitation. TRICUSPID VALVE There is severe tricuspid regurgitation. There is estimated moderate to severe pulmonary hypertension present (68 mmHg). PULMONARY VALVE The pulmonary valve is not well visualized. VESSELS The inferior vena cava is normal in size. PERICARDIUM No pericardial effusion. Andrei Parks MD, FACC (Electronically Signed) Final Date:11 November 2017 15:57
--- NOTE | 2017-11-11 16:40 | HHI.PR ---
Subjective Remarks Pt still has dyspnea with exertion needing oxygen. His work up for elevated D- Dimer was negative. He does admit he smoked for about 16 years when he was younger. Objective Vitals Vital Signs Date Time Temp Pulse Resp B/P (MAP) Pulse Ox O2 Delivery O2 Flow Rate FiO2 11/11/17 16:00 60 11/11/17 15:06 98.1 66 18 110/62 (78) 97 11/11/17 15:00 61 11/11/17 14:00 62 11/11/17 13:00 60 11/11/17 12:00 60 11/11/17 11:22 98.4 64 18 112/64 (80) 96 11/11/17 11:00 67 11/11/17 10:00 60 11/11/17 09:00 60 11/11/17 08:00 60 11/11/17 07:30 98.2 65 16 123/69 (87) 95 11/11/17 07:00 59 11/11/17 06:00 59 11/11/17 05:00 58 11/11/17 04:00 66 11/11/17 03:07 98.1 65 16 132/73 (92) 90 11/11/17 03:00 60 11/11/17 02:00 58 11/11/17 01:00 58 11/11/17 00:00 66 11/10/17 23:30 97.9 60 16 99/67 (78) 95 11/10/17 23:00 61 11/10/17 22:00 62 11/10/17 21:00 62 11/10/17 20:00 70 11/10/17 19:48 97.9 61 16 116/70 (85) 95 11/10/17 19:00 59 11/10/17 18:00 70 11/10/17 17:00 60 I/O 11/10/17 11/10/17 11/10/17 11/11/17 11/11/17 11/11/17 07:00 15:00 23:00 07:00 15:00 23:00 Intake Total 240 ml 1200 ml 240 ml Output Total 200 ml 800 ml 700 ml Balance 40 ml 400 ml -460 ml Intake Oral 240 ml 1200 ml 240 ml Output Urine Total 200 ml 800 ml 700 ml Stool Total 0 ml # Voids 1 Result Diagram: 11/09/17 0426 11/09/17 1929 Objective Remarks GENERAL: Well-nourished, well-developed patient. SKIN: Warm and dry. HEAD: Normocephalic. EYES: No scleral icterus. No injection or drainage. NECK: Supple, trachea midline. No JVD or lymphadenopathy. CARDIOVASCULAR: Regular rate and rhythm without murmurs, gallops, or rubs. RESPIRATORY: Breath sounds equal bilaterally. No accessory muscle use. GASTROINTESTINAL: Abdomen soft, non-tender, nondistended. MUSCULOSKELETAL: No cyanosis, or edema. BACK: Nontender without obvious deformity. No CVA tenderness. EXTREMITIES: no edema A/P Problem List: (1) CHF (congestive heart failure) ICD Code: I50.9 - Heart failure, unspecified Status: Acute (2) PNA (pneumonia) ICD Code: J18.9 - Pneumonia, unspecified organism Status: Acute (3) Renal insufficiency ICD Code: N28.9 - Disorder of kidney and ureter, unspecified (4) A-fib ICD Code: I48.91 - Unspecified atrial fibrillation (5) DM (diabetes mellitus) ICD Code: E11.9 - Type 2 diabetes mellitus without complications Assessment and Plan CHF Exacerbation BNP improved, but patient remains oxygen dependant Exam shows no ankle edema and lungs are clear No work up evidence of pulmonary embolism or DVT Consider COPD changes, will dose with single dose of steroid and duoneb, check for change Pneumonia Continue Rocephin and Azithromycin Afebrile, WBC normal Atrial Fibrillation Stable Type 2 diabetes Stable DVT Prophylaxis Mohan Oconnor MD Nov 11, 2017 16:40
[2017-11-11] MEDS: AZITHROMYCIN INJ 500 MG in SODIUM CHLOR 0.9% 250 ML INJ 250 ML IV SCH (17:45)
[2017-11-11] MEDS: cefTRIAXone INJ 1,000 MG in SODIUM CHLORIDE 0.9% INJ 100 ML IV SCH (17:47)
[2017-11-11] MEDS: TAMSULOSIN HCL 0.4 MG CAP PO SCH (19:44)
[2017-11-11] MEDS: ATORVASTATIN 80 MG TAB PO SCH (19:44)
[2017-11-12] VITALS (23 sets, daily range): BP systolic 101–120; BP diastolic 60–71; PULSE 59–109; RESP 17–18; TEMP 98.2–98.5; O2SAT 92–94
[2017-11-12] MEDS: LEVOTHYROXINE SODIUM 88 MCG TAB PO SCH (05:52)
[2017-11-12] MEDS: FAMOTIDINE 20 MG TAB PO SCH (08:50)
[2017-11-12] MEDS: DOCUSATE SODIUM 50 MG/SENNA 8.6 MG TAB PO SCH (08:50)
[2017-11-12] MEDS: AMIODARONE 200 MG TAB PO SCH (08:50)
[2017-11-12] MEDS: FENOFIBRATE 48 MG TAB PO SCH (08:50)
[2017-11-12] MEDS: glipiZIDE 5 MG TAB PO SCH (08:50)
[2017-11-12] MEDS: RIVAROXABAN 15 MG TAB PO SCH (08:50)
[2017-11-12] MEDS: INSULIN ASPART SUPPLEMENTAL SCALE SQ SCH ×3 (08:50→17:30)
[2017-11-12] MEDS: FUROSEMIDE 40 MG/4 ML VIAL IV PUSH SCH (08:51)
[2017-11-12] MEDS: SODIUM CHLORIDE 0.9% FLUSH 10 ML FLUSH IV FLUSH SCH (08:51)
[2017-11-12 09:59] LABS: BASOPHIL % 0.2 % (0.0-2.0); EOSINOPHIL % 0.1 % (0.0-4.0); HEMATOCRIT 33.2 % (39.0-51.0); HEMOGLOBIN 10.4 GM/DL (13.0-17.0); LYMPH % 4.4 % (9.0-44.0); LYMPHOCYTE # 0.4 TH/MM3 (1.0-4.8); MEAN CORPUSCULAR HEMOGLOBIN 22.8 PG (27.0-34.0); MEAN CORPUSCULAR HGB CONC 31.3 % (32.0-36.0); MEAN PLATELET VOLUME 7.9 FL (7.0-11.0); MONO % 3.9 % (0.0-8.0); MONOCYTE # 0.4 TH/MM3 (0-0.9); NEUT % 91.4 % (16.0-70.0); PLATELET COUNT 489 TH/MM3 (150-450); RED BLOOD COUNT 4.55 MIL/MM3 (4.50-5.90); RED CELL DISTRIBUTION WIDTH 17.9 % (11.6-17.2); WHITE BLOOD COUNT 9.8 TH/MM3 (4.0-11.0)
[2017-11-12] MEDS ORDERED: AZIT500T2 PO (15:49)
[2017-11-12] MEDS ORDERED: CEPH-460 PO (15:49)
[2017-11-12] MEDS ORDERED: OXYGENDME NAS.CANULA (15:49)
--- NOTE | 2017-11-12 15:51 | HHI.FF ---
Face to Face Verification Diagnosis: (1) CHF (congestive heart failure) (2) PNA (pneumonia) (3) A-fib (4) DM (diabetes mellitus) Physical Therapy Order: Evaluate and Treat Home Health Nursing Order: Signs/symptoms of disease process CHF education Oxygen administration education I have seen patient Alhaji Dumont on 11/12/17. My clinical findings support the need for the requested home health care services because: Ltd mobility - disease progression Patient has SOB Deconditioned w/ increased weakness Limited ability to care for self I certify that my clinical findings support that this patient is homebound because: Hx COPD- exertion dyspnea/weakness Unsafe to leave home unassisted Mohan Haynes MD Nov 12, 2017 15:51
--- NOTE | 2017-11-12 15:54 | HHI.DS ---
Discharge Summary Admission Date Nov 08, 2017 at 19:17 Discharge Date: Nov 12, 2017 Admitting Diagnosis CHF Exacerbation; PNA (1) CHF (congestive heart failure) ICD Code: I50.9 - Heart failure, unspecified Status: Acute (2) PNA (pneumonia) ICD Code: J18.9 - Pneumonia, unspecified organism Status: Acute (3) Renal insufficiency ICD Code: N28.9 - Disorder of kidney and ureter, unspecified (4) A-fib ICD Code: I48.91 - Unspecified atrial fibrillation (5) DM (diabetes mellitus) ICD Code: E11.9 - Type 2 diabetes mellitus without complications Procedures none Brief History - From Admission This is an 87-year-old male with a PMH of HTN, Hyperlipidemia, CAD s/p Stent, Pacemaker ([employer]), CHF (Unknown EF), Prostate CA and DM [facility] to [facility]B and bilateral lower extremity edema. Per patient, symptoms have been ongoing for 1-2wks, now progressively worse over the last 1- 2 days. SOB mostly w/ exertion, improved at rest. Moderate severity. Denies fever, chills, cough or chest pain. On arrival, BP 114/57, HR 74, O2 sat 90% on RA, Afebrile. Hgb 10.3, previously 13.7 on 06/23/14. Creatinine 1.90, producing 1.70 on 06/24/14. Troponin 0.03. BNP 894. CXR bilateral upper lung interstitial infiltrates, probable small left pleural effusion. S/p Lasix 40mg IV and Rocephin/Zithro in ER. CBC/BMP: 11/12/17 0942 11/09/17 1929 Significant Findings Laboratory Tests Test 11/09/17 19:29 11/10/17 15:38 11/12/17 09:42 Blood Urea Nitrogen 40 MG/DL (7-18) Creatinine 1.65 MG/DL (0.60-1.30) Random Glucose 72 MG/DL (74-106) Total Protein 6.1 GM/DL (6.4-8.2) Albumin 2.5 GM/DL (3.4-5.0) Aspartate Amino Transf (AST/SGOT) 91 U/L (15-37) Alanine Aminotransferase (ALT/SGPT) 99 U/L (12-78) Total Bilirubin 1.1 MG/DL (0.2-1.0) Estimat Glomerular Filtration Rate 40 ML/MIN (>89) B-Type Natriuretic Peptide 695 PG/ML (0-100) D-Dimer Quantitative (PE/DVT) 1.05 MG/L FEU (0.00-0.50) Hemoglobin 10.4 GM/DL (13.0-17.0) Hematocrit 33.2 % (39.0-51.0) Mean Corpuscular Volume 73.0 FL (80.0-100.0) Mean Corpuscular Hemoglobin 22.8 PG (27.0-34.0) Mean Corpuscular Hemoglobin Concent 31.3 % (32.0-36.0) Red Cell Distribution Width 17.9 % (11.6-17.2) Platelet Count 489 TH/MM3 (150-450) Neutrophils (%) (Auto) 91.4 % (16.0-70.0) Lymphocytes (%) (Auto) 4.4 % (9.0-44.0) Neutrophils # (Auto) 9.0 TH/MM3 (1.8-7.7) Lymphocytes # (Auto) 0.4 TH/MM3 (1.0-4.8) PE at Discharge GENERAL: Well-nourished, well-developed patient. SKIN: Warm and dry. HEAD: Normocephalic. EYES: No scleral icterus. No injection or drainage. NECK: Supple, trachea midline. No JVD or lymphadenopathy. CARDIOVASCULAR: Regular rate and rhythm without murmurs, gallops, or rubs. RESPIRATORY: Breath sounds equal bilaterally. No accessory muscle use. GASTROINTESTINAL: Abdomen soft, non-tender, nondistended. MUSCULOSKELETAL: No cyanosis, or edema. BACK: Nontender without obvious deformity. No CVA tenderness. EXTREMITIES: no edema Hospital Course 87M admitted for CHF exacerbation with suspect PNA. He felt better within 24 hours, but has been unable to wean off of oxygen. He otherwise says he feels fine and has been asking to go home since yesterday. Positive D-Dimer resulted in a work up for DVT / PE, but all results were negative. His cash on delivery clerk saw him and said he was good to go home, his son is at bedside and says he is comfortable watching him at home. I will discharge him home with oxygen. Home healthcare to follow. Pt Condition on Discharge: Fair Discharge Disposition: Disch w/ Home Health Serv Discharge Time: > 30 minutes Discharge Instructions DIET: Follow Instructions for: Heart Healthy Diet, Diabetic Diet Activities you can perform: See Additionl Instruction Other Activity Instructions: Ambulation as tolerated Mohan Haynes MD Nov 12, 2017 15:54
--- NOTE | 2017-11-12 20:10 | MB ---
cc: ALKA TERRAZAS MD DATE OF CONSULTATION 11/12/17 HISTORY OF PRESENT ILLNESS Thank you Dr. Torres and Dr. Haynes for asking me to see this very pleasant 87-year-old male who is well-known to me who presents with congestive heart failure. The patient previously had a an ejection fraction of 35-36% which has dropped about 20%. He has had a history of prior ICD placement. He presents with increasing shortness of breath. The shortness of breath has improved since he has been diuresed status post Lasix and treatment for pneumonia. PAST MEDICAL HISTORY 1. ventricular tachycardia 2. Atherosclerotic heart disease status post stenting to the RCA 3. Carotid stenosis 4. Atrial fibrillation status post two ablations with Dr. Jones on Xarelto and previously on Amiodarone 5. History of cardiomyopathy, 6. Congestive heart failure, 7. Hypertension, 8. Shortness of breath, 9. Hyperlipidemia, 10. Diabetes, 11. Hypothyroidism 12. Gastroesophageal reflux disease 13. Nuclear stress test in 05/2016 was negative for ischemia. 14. History of the prostate cancer 15. Diabetes 16. Parathyroidectomy 17. Bilateral cataract surgery, 18. Vasectomy 19. Prostate seed placement for prostate cancer. ALLERGIES IODINE FAMILY HISTORY Positive for diabetes. SOCIAL HISTORY Occasional alcohol, no drugs or tobacco. PHYSICAL EXAMINATION VITAL SIGNS: On examination pulse was 74, blood pressure 123/70. HEENT: Eyes show no xanthelasma. Mouth showed no cyanosis or pallor. NECK: no JVD CARDIAC: Two heart sounds, no murmurs. CHEST: Clear. ABDOMEN: Soft. No hepatosplenomegaly EXTREMITIES: No evidence of edema. NEUROLOGIC: Grossly intact. LABORATORY DATA Hemoglobin 10.3, hematocrit 33.4, white count 10.0, platelet count 435, creatinine was 1.93 and was 1.65. BNP was elevated on 11/09 at 690. IMAGING STUDIES Chest x-ray showed bilateral infiltrates small pleural effusion. ASSESSMENT AND PLAN This is a patient with some degree of congestive heart failure. Echocardiogram shows a low ejection fraction of 20% when seen previously. He also has a history of ventricular tachycardia. At this point, I agree with being treated on antibiotics, diuretics for pneumonia/congestive heart failure. He should continue on his Amiodarone for ventricular tachycardia. We will see him again in the office in the next few weeks upon discharge. Note that his electrocardiogram was read as showing atrial pacemaker and ventricular pacemaker. Alka Terrazas MD, CP,[facility] HORTENCIA/ /6:58 PM /7:45 PM [facility]ITALPaulette
== END 2017-11-12 18:53 | disposition home health service (06) ==
LOC: NEPC 14:56 → INTOOBSV 19:17 → NEDA 19:17 → HCIS 20:30
PROVIDERS: ADMIT Family Medicine; ATTEND Family Medicine
DX: I50.9 Heart failure, unspecified (principal); J18.9 Pneumonia, unspecified organism; I13.0 Hypertensive heart and chronic kidney disease with heart failure and stage 1 through stage 4 chronic kidney disease, or unspecified chronic kidney disease; N18.9 Chronic kidney disease, unspecified; I48.2 Chronic atrial fibrillation; I47.2 Ventricular tachycardia; I25.10 Atherosclerotic heart disease of native coronary artery without angina pectoris; E11.22 Type 2 diabetes mellitus with diabetic chronic kidney disease; E78.5 Hyperlipidemia, unspecified; E03.9 Hypothyroidism, unspecified; K21.9 Gastro-esophageal reflux disease without esophagitis; Z95.5 Presence of coronary angioplasty implant and graft; Z95.810 Presence of automatic (implantable) cardiac defibrillator; Z99.81 Dependence on supplemental oxygen; Z85.46 Personal history of malignant neoplasm of prostate; Z86.79 Personal history of other diseases of the circulatory system; Z87.891 Personal history of nicotine dependence; Z79.84 Long term (current) use of oral hypoglycemic drugs
CPT/HCPCS: 71020; 78582; 80053; 81001; 82550; 82552; 82948; 83735; 83880; 84484; 85025; 85379; 85610; 85730; 87040; 93005; 93306; 93970; 94618; 96365; 96366; 96368; 96372; 96375; 96376; 97163; 97530; 99285; A9540; A9567; G0378; G8987; G8988; J0456; J0696; J1815; J1940; J2930; J7050; J0171; J0461

== ENCOUNTER → 2017-12-09 | Outpatient (CLI) | payer MEDICARE, OTHER ==
[~2017-12-09] MED LIST changes: -ACET325S8 PO; +ATOR80TA45 PO; +AZIT500T2 PO; -CALTTAB PO; +CEPH-460 PO; -DIPH2%T PO; +FENO1TAB76 PO; -FLUN25I; +FURO20TA PO; -GLIP5 PO; +GLIP5TAB8 PO; -LASI20TA PO; +LEVO88TA2 PO; -LORTA5 PO; -MELO15TA2 PO; -NICO2GUM68 TOP; +OXYGENDME NAS.CANULA; +PACE400T PO; -PRIN5TAB PO; -PROT40TA PO; +RANI150T PO; -SPIR25 PO; -SYNT88TA PO; -TAMS0.4C67 PO; +TAMS5CAP PO; +XARE15TA PO; -XARE20TA PO; -ZOCO40TA PO
--- NOTE | 2017-12-10 10:08 | RSPPFT ---
DATE OF PROCEDURE: 12/09/17 COMMENTS: VOLUMES DYNAMIC: FVC and FEV1 mildly reduced. STATIC: TLC mildly reduced; FRC and RV normal. FLOWS: FEV1% mildly reduced; FEF 25-75 severely reduced. DIFFUSION: Severely reduced. FLOW VOLUME LOOP: Pattern of variable intrathoracic airways obstruction. IMPRESSION: Combined mild restrictive and moderate obstructive ventilatory defect with a severe reduction in diffusion. There is significant improvement post-bronchodilator.
== END ==
LOC: HRSP 12:50
PROVIDERS: ATTEND Internal Medicine Cardiovascular Disease
DX: I50.9 Heart failure, unspecified (principal); R06.02 Shortness of breath
CPT/HCPCS: 36600; 82805; 94060; 94726; 94729

== ENCOUNTER 2018-02-19 17:56 | Inpatient (IN) | payer MEDICARE, OTHER ==
[~2018-02-19] VITALS: Ht 172.7 cm; Wt 73.0 kg
[~2018-02-19 17:56] MED LIST changes: -BUME1TAB PO; -SOTA80TA PO; -SPIR25TA PO; -TORS20TA PO
[2018-02-19 18:17] VITALS: BP 94/53; PULSE 79; RESP 20; TEMP 96.6; O2SAT 98
[2018-02-19 18:30] VITALS: BP 113/68; PULSE 71; RESP 22; O2SAT 95
[2018-02-19] MEDS ORDERED: SODIUM CHLORIDE 0.9% FLUSH 10 ML FLUSH IVF PRN (18:45)
[2018-02-19 19:16] LABS: AUTOMATED NEUTROPHIL # 4.1 TH/MM3 (1.8-7.7); BASOPHIL % 0.7 % (0.0-2.0); EOSINOPHIL % 0.6 % (0.0-4.0); HEMATOCRIT 31.1 % (39.0-51.0); HEMOGLOBIN 9.5 GM/DL (13.0-17.0); LYMPHOCYTE # 0.6 TH/MM3 (1.0-4.8); MEAN CORPUSCULAR HEMOGLOBIN 24.7 PG (27.0-34.0); MEAN CORPUSCULAR HGB CONC 30.5 % (32.0-36.0); MEAN PLATELET VOLUME 7.7 FL (7.0-11.0); MONO % 9.8 % (0.0-8.0); MONOCYTE # 0.5 TH/MM3 (0-0.9); NEUT % 76.9 % (16.0-70.0); PLATELET COUNT 255 TH/MM3 (150-450); RED BLOOD COUNT 3.85 MIL/MM3 (4.50-5.90); RED CELL DISTRIBUTION WIDTH 21.9 % (11.6-17.2); WHITE BLOOD COUNT 5.4 TH/MM3 (4.0-11.0)
[2018-02-19 19:34] VITALS: BP_SYST 120; BP_SYST 121; BP_SYST 125; BP_DIAS 63; BP_DIAS 64; BP_DIAS 65
[2018-02-19 19:36] LABS: ALBUMIN 3.6 GM/DL (3.4-5.0); ALT (GPT) 138 U/L (12-78); AST (GOT) 114 U/L (15-37); BICARBONATE 23.5 MEQ/L (21.0-32.0); BLOOD UREA NITROGEN 60 MG/DL (7-18); CALCIUM 8.6 MG/DL (8.5-10.1); CHLORIDE 105 MEQ/L (98-107); CREATININE 2.95 MG/DL (0.60-1.30); GLOMERULAR FILTRATION RATE 20 ML/MIN (>89); GLUCOSE,RANDOM 218 MG/DL (74-106); MAGNESIUM 2.7 MG/DL (1.5-2.5); SODIUM (NA) 136 MEQ/L (136-145)
[2018-02-19 19:41] LABS: INTERNATIONAL NORMALIZED RATIO 1.5 RATIO; PROTHROMBIN TIME - PATIENT 15.1 SEC (9.8-11.6)
[2018-02-19 19:42] LABS: ALKALINE PHOSPHATASE 71 U/L (45-117); TOTAL BILIRUBIN ADULT 0.9 MG/DL (0.2-1.0); TOTAL PROTEIN 6.8 GM/DL (6.4-8.2); TROPONIN I LESS THAN 0.02 NG/ML (0.02-0.05)
--- NOTE | 2018-02-19 19:43 | PD ---
HPI Chief Complaint: Abnormal Results Time Seen by Provider: 18:27 Travel History International Travel<30 days: No Contact w/Intl Traveler<30days: No Traveled to known affect area: No History of Present Illness HPI Patient is a 87-year-old male sent to the emergency department for evaluation of shortness of breath, edema and abnormal labs. Patient states he was sent by Dr. Terrazas for anemia. Patient states his symptoms started 4-6 weeks ago. He reports that he cannot walk around his house without getting short of breath. He reports that he gets muscle aches in his legs. Patient denies any chest pain , nausea, vomiting, fever, chills, dark or tarry like stools. Symptom onset was gradual, symptoms are moderate to severe nature. There are no alleviating factors. Symptoms are exacerbated with activity. PFSH Past Medical History Hx Anticoagulant Therapy: Yes (XARELTO) Arthritis: Yes Heart Rhythm Problems: Yes (PACEMAKER medtronic) Cancer: Yes (PROSTRATE) Cardiovascular Problems: Yes (2 STENTS 2007) High Cholesterol: Yes Chemotherapy: No Diabetes: Yes Patient Takes Glucophage: No Endocrine: Yes Gastrointestinal Disorders: Yes GERD: Yes Glaucoma: No Genitourinary: Yes Hepatitis: No Hiatal Hernia: Yes Hypertension: Yes Immune Disorder: No Implanted Vascular Access Dvce: Yes Medical other: Yes Musculoskeletal: Yes Neurologic: Yes Psychiatric: No Reproductive: No Respiratory: No Radiation Therapy: Yes Sickle Cell Disease: No Thyroid Disease: Yes Ulcer: Yes Past Surgical History Abdominal Surgery: Yes Body Medical Devices: CARDIAC STENTS Cardiac Surgery: Yes (2 STENT, PACEMAKER, ABLATIONS (X2) ) Ear Surgery: No Endocrine Surgery: Yes (PARATHYROIDECTOMY) Eye Surgery: Yes (NAZARIO. CATARACT EXTRACT.) Genitourinary Surgery: Yes (VASECTOMY, PROSTATE SEED IMPL) Gynecologic Surgery: No Neurologic Surgery: No Oral Surgery: Yes (UPPER TEETH) Pacemaker: Yes Thoracic Surgery: No Other Surgery: Yes Social History Alcohol Use: Yes (SOCIAL) Tobacco Use: No (quit 45 years ago) Substance Use: No Allergies-Medications (Allergen,Severity, Reaction): Coded Allergies: bacitracin (Unverified Allergy, Severe, RASH. SKIN BREAKDOWN, 02/19/18) iodine (Unverified Allergy, Severe, 02/19/18) HIVES,SWELLING potassium iodide (Unverified Allergy, Severe, 02/19/18) HIVES,SWELLING povidone-iodine (Unverified Allergy, Severe, 02/19/18) HIVES,SWELLING sodium iodide (Unverified Allergy, Severe, 02/19/18) HIVES,SWELLING sodium iodide (Unverified Allergy, Severe, 02/19/18) HIVES,SWELLING Reported Meds & Prescriptions Reported Meds & Active Scripts Active Oxygen (O2) Device Liter MIGUEL.CANULA CONTINUOUS Oxygen Concentrator Portable Gaseous 2 L/min via Nasal Canula Continuous For 99 months Reported Pacerone (Amiodarone HCl) 400 Mg Tab 400 Mg PO DAILY Tricor (Fenofibrate) 48 Mg Tab 48 Mg PO DAILY Tke with food. Ranitidine (Ranitidine HCl) 150 Mg Tab 150 Mg PO DAILY Atorvastatin (Atorvastatin Calcium) 80 Mg Tab 80 Mg PO HS Flomax (Tamsulosin HCl) 0.4 Mg Cap 0.4 Mg PO HS Levothyroxine (Levothyroxine Sodium) 88 Mcg Tab 88 Mcg PO DAILY Glipizide 5 Mg Tab 5 Mg PO DAILY Take 30 minutes before a meal Furosemide 20 Mg Tab 20 Mg PO DAILY Review of Systems Except as stated in HPI: all other systems reviewed are Neg Cardiovascular: Positive: Dyspnea on exertion, Edema, No: Chest Pain or Discomfort Respiratory: Positive: Shortness of Breath Gastrointestinal: No: Nausea, Vomiting, Abdominal Pain Musculoskeletal: Positive: Myalgias Neurologic: Positive: Weakness Physical Exam Narrative GENERAL: Well-developed, well-nourished, alert elderly gentleman. Presenting in no acute distress. SKIN: Warm and dry. HEAD: Atraumatic. Normocephalic. EYES: Pupils equal and round. No scleral icterus. No injection or drainage. Pale conjunctiva ENT: No nasal bleeding or discharge. Mucous membranes pink and moist. NECK: Trachea midline. No JVD. CARDIOVASCULAR: Regular rate and rhythm. RESPIRATORY: No accessory muscle use. Diminished in bases GASTROINTESTINAL: Abdomen soft, non-tender, nondistended. Hepatic and splenic margins not palpable. MUSCULOSKELETAL: Extremities without clubbing, cyanosis. No obvious deformities. 2+ pitting edema to bilateral lower extremities. NEUROLOGICAL: Awake and alert. No obvious cranial nerve deficits. Motor grossly within normal limits. Five out of 5 muscle strength in the arms and legs. Normal speech. PSYCHIATRIC: Appropriate mood and affect; insight and judgment normal. Data Data Last Documented VS Vital Signs Date Time Temp Pulse Resp B/P (MAP) Pulse Ox O2 Delivery O2 Flow Rate FiO2 02/19/18 19:34 62 121/65 (83) 62 120/64 (82) 62 125/63 (83) 02/19/18 18:30 22 95 Room Air 02/19/18 18:17 96.6 Orders Orders Complete Blood Count With Diff (02/19/18 18:37) Comprehensive Metabolic Panel (02/19/18 18:37) Lipase (02/19/18 18:37) Prothrombin Time / Inr (Pt) (02/19/18 18:37) Act Partial Throm Time (Ptt) (02/19/18 18:37) Type And Screen (02/19/18 18:37) Ecg Monitoring (02/19/18 18:37) Iv Access Insert/Monitor (02/19/18 18:37) Orthostatic Vital Signs (02/19/18 18:37) Oximetry (02/19/18 18:37) Sodium Chloride 0.9% Flush (Ns Flush) (02/19/18 18:45) B-Type Natriuretic Peptide (02/19/18 18:37) Magnesium (Mg) (02/19/18 18:37) Troponin I (02/19/18 18:37) Chest, Single Ap (02/19/18 ) Electrocardiogram (02/19/18 18:39) Admit Order (Ed Use Only) (02/19/18 21:18) Labs Laboratory Tests Test 02/19/18 18:42 White Blood Count 5.4 TH/MM3 Red Blood Count 3.85 MIL/MM3 Hemoglobin 9.5 GM/DL Hematocrit 31.1 % Mean Corpuscular Volume 81.0 FL Mean Corpuscular Hemoglobin 24.7 PG Mean Corpuscular Hemoglobin Concent 30.5 % Red Cell Distribution Width 21.9 % Platelet Count 255 TH/MM3 Mean Platelet Volume 7.7 FL Neutrophils (%) (Auto) 76.9 % Lymphocytes (%) (Auto) 12.0 % Monocytes (%) (Auto) 9.8 % Eosinophils (%) (Auto) 0.6 % Basophils (%) (Auto) 0.7 % Neutrophils # (Auto) 4.1 TH/MM3 Lymphocytes # (Auto) 0.6 TH/MM3 Monocytes # (Auto) 0.5 TH/MM3 Eosinophils # (Auto) 0.0 TH/MM3 Basophils # (Auto) 0.0 TH/MM3 CBC Comment AUTO DIFF Differential Comment AUTO DIFF CONFIRMED Prothrombin Time 15.1 SEC Prothromb Time International Ratio 1.5 RATIO Activated Partial Thromboplast Time 27.5 SEC Blood Urea Nitrogen 60 MG/DL Creatinine 2.95 MG/DL Random Glucose 218 MG/DL Total Protein 6.8 GM/DL Albumin 3.6 GM/DL Calcium Level 8.6 MG/DL Magnesium Level 2.7 MG/DL Alkaline Phosphatase 71 U/L Aspartate Amino Transf (AST/SGOT) 114 U/L Alanine Aminotransferase (ALT/SGPT) 138 U/L Total Bilirubin 0.9 MG/DL Sodium Level 136 MEQ/L Potassium Level 5.3 MEQ/L Chloride Level 105 MEQ/L Carbon Dioxide Level 23.5 MEQ/L Anion Gap 8 MEQ/L Estimat Glomerular Filtration Rate 20 ML/MIN Troponin I LESS THAN 0.02 NG/ML B-Type Natriuretic Peptide 1727 PG/ML Lipase 366 U/L MDM Medical Decision Making Medical Screen Exam Complete: Yes Emergency Medical Condition: Yes Interpretation(s) Vital Signs Date Time Temp Pulse Resp B/P (MAP) Pulse Ox O2 Delivery O2 Flow Rate FiO2 02/19/18 19:34 62 121/65 (83) 62 120/64 (82) 62 125/63 (83) 02/19/18 18:30 71 22 113/68 (83) 95 Room Air 02/19/18 18:17 96.6 79 20 94/53 (67) 98 Laboratory Tests Test 02/19/18 18:42 White Blood Count 5.4 TH/MM3 Red Blood Count 3.85 MIL/MM3 Hemoglobin 9.5 GM/DL Hematocrit 31.1 % Mean Corpuscular Volume 81.0 FL Mean Corpuscular Hemoglobin 24.7 PG Mean Corpuscular Hemoglobin Concent 30.5 % Red Cell Distribution Width 21.9 % Platelet Count 255 TH/MM3 Mean Platelet Volume 7.7 FL Neutrophils (%) (Auto) 76.9 % Lymphocytes (%) (Auto) 12.0 % Monocytes (%) (Auto) 9.8 % Eosinophils (%) (Auto) 0.6 % Basophils (%) (Auto) 0.7 % Neutrophils # (Auto) 4.1 TH/MM3 Lymphocytes # (Auto) 0.6 TH/MM3 Monocytes # (Auto) 0.5 TH/MM3 Eosinophils # (Auto) 0.0 TH/MM3 Basophils # (Auto) 0.0 TH/MM3 CBC Comment AUTO DIFF Prothrombin Time 15.1 SEC Prothromb Time International Ratio 1.5 RATIO Activated Partial Thromboplast Time 27.5 SEC Blood Urea Nitrogen 60 MG/DL Creatinine 2.95 MG/DL Random Glucose 218 MG/DL Total Protein 6.8 GM/DL Albumin 3.6 GM/DL Calcium Level 8.6 MG/DL Magnesium Level 2.7 MG/DL Alkaline Phosphatase 71 U/L Aspartate Amino Transf (AST/SGOT) 114 U/L Alanine Aminotransferase (ALT/SGPT) 138 U/L Total Bilirubin 0.9 MG/DL Sodium Level 136 MEQ/L Potassium Level 5.3 MEQ/L Chloride Level 105 MEQ/L Carbon Dioxide Level 23.5 MEQ/L Anion Gap 8 MEQ/L Estimat Glomerular Filtration Rate 20 ML/MIN Troponin I LESS THAN 0.02 NG/ML Lipase 366 U/L Last Impressions Chest X-Ray 02/19/18 0000 Signed Impressions: Service Date/Time: Monday, February 19, 2018 20:07 - CONCLUSION: 1. Cardiomegaly with mild edema pattern and trace pleural fluid. Joseph Balderas MD Differential Diagnosis CHF versus metabolic abnormality versus symptomatic anemia versus arrhythmia versus other Narrative Course Patient is an 87-year-old male presenting to the emergency department for evaluation of abnormal results. Patient was hypotensive on arrival, he was otherwise stable and appeared well. Initial EKG which was reviewed by my attending physician shows atrial and ventricular paced rhythm. Labs ordered and pending, patient placed on night monitor, continuous pulse oximetry. IV access was established. Patient's son is at bedside. CBC with a hemoglobin of 9.5/31.1 Chemistry potassium of 5.3, magnesium 2.7, BUN/creatinine 60/2.95, this is elevated when compared to prior of October 2017, previous results were 40/1.65. BNP is elevated 1727 is also elevated when compared to prior of October 2017, previous result was 695 Cardiac enzymes are negative 1 set Mild transaminitis which is stable when compared to prior Chest x-ray which is read by the radiologist shows cardiomegaly with mild edema pattern and trace pleural fluid. Findings were discussed with my attending physician. Patient will be admitted for acute renal failure, congestive heart failure. Discussed with Dr. Peck who accepted admission. Admit orders placed. Patient and son advised on findings and plan of care and are agreeable. Diagnosis Primary Impression: Acute renal failure Qualified Codes: N17.9 - Acute kidney failure, unspecified Additional Impressions: CHF (congestive heart failure) Qualified Codes: I50.9 - Heart failure, unspecified Hyperkalemia Hypermagnesemia Anemia Qualified Codes: D64.9 - Anemia, unspecified Admitting Information Admitting Physician Requests: Admit Condition: Stable Janina Tinajero [facility] Feb 19, 2018 19:43
--- NOTE | 2018-02-19 20:47 | RADRPT ---
EXAM DATE/TIME: 02/19/2018 20:07 [place] COMPARISON: No previous studies available for comparison. INDICATIONS : Short of breath. MEDICAL HISTORY : Congestive heart failure. SURGICAL HISTORY : Pacemaker. ENCOUNTER: Initial ACUITY: 1 week PAIN SCORE: 0/10 LOCATION: Bilateral chest FINDINGS: A single view of the chest demonstrates global cardiomegaly. Pacer leads overlie the nature and right ventricle. Mild edema pattern with basilar atelectasis. Trace pleural fluid. CONCLUSION: 1. Cardiomegaly with mild edema pattern and trace pleural fluid. Joseph Balderas MD on February 19, 2018 at 20:44 Board Certified Radiologist. This report was verified electronically.
[2018-02-19] MEDS ORDERED: NALOXONE HCL 0.4 MG/ML AMP IV PUSH PRN (21:45)
[2018-02-19] MEDS ORDERED: LACTULOSE SYRUP 20 GM/30 ML CUP PO PRN (21:45)
[2018-02-19] MEDS ORDERED: SODIUM CHLORIDE 0.9% FLUSH 10 ML FLUSH IV FLUSH PRN (21:45)
[2018-02-19] MEDS ORDERED: ONDANSETRON HCL 4 MG/2 ML VIAL IVP PRN (21:45)
[2018-02-19] MEDS ORDERED: FUROSEMIDE 40 MG/4 ML VIAL IV PUSH ONE (21:45)
[2018-02-19] MEDS ORDERED: SENNOSIDES 8.6 MG TAB PO PRN (21:45)
[2018-02-19] MEDS ORDERED: ACETAMINOPHEN 325 MG TAB PO PRN (21:45)
[2018-02-19] MEDS ORDERED: BISACODYL 10 MG SUPP RECTAL PRN (21:45)
[2018-02-19] MEDS ORDERED: MAGNESIUM HYDROXIDE SUSP 30 ML CUP PO PRN (21:45)
--- NOTE | 2018-02-19 21:57 | HHI.HP ---
HPI Service [facility] Primary Care Physician Raj[facility] Admission Diagnosis CHF, acute renal failure Diagnoses: Travel History International Travel<30 Days: No Contact w/Intl Traveler <30 Da: No Traveled to Known Affected Are: No History of Present Illness 87-year-old male with a PMH of HTN, Hyperlipidemia, CAD s/p Stent, Pacemaker ( Medtronic), CHF (EF of 20%), Prostate CA and DM was sent to the ER by his heating element winder, Dr. Terrazas, for evaluation of possible anemia. The patient had outpatient lab work done and received a call to go to the emergency department for further evaluation. Revels the emergency department, the patient's H&H was 9.5/31.1, baseline approximately 10. The patient does complain of dyspnea on exertion and states he is having difficulty walking across the room without becoming shortness of breath. He denies any paroxysmal nocturnal dyspnea. Reports 3-4 days of bilateral lower extremity edema that is new for him. Denies any chest pain or shortness of breath at rest. No abdominal pain. No nausea/vomiting/diarrhea. No lateralizing signs/symptoms. Review of Systems Except as stated in HPI: all other systems reviewed are Neg Past Family Social History Past Medical History HTN, Hyperlipidemia, CAD s/p Stent, Pacemaker (Medtronic), CHF (EF of 20%), Prostate CA and DM Past Surgical History Cardiac Stent, Pacemaker, Parathyroidectomy, Bilateral Cataract Surgery, Vasectomy, Prostate Seeds Reported Medications Reported Meds & Active Scripts Active Oxygen (O2) Device Liter MIGUEL.CANULA CONTINUOUS Oxygen Concentrator Portable Gaseous 2 L/min via Nasal Canula Continuous For 99 months Reported Pacerone (Amiodarone HCl) 400 Mg Tab 400 Mg PO DAILY Tricor (Fenofibrate) 48 Mg Tab 48 Mg PO DAILY Tke with food. Ranitidine (Ranitidine HCl) 150 Mg Tab 150 Mg PO DAILY Atorvastatin (Atorvastatin Calcium) 80 Mg Tab 80 Mg PO HS Flomax (Tamsulosin HCl) 0.4 Mg Cap 0.4 Mg PO HS Levothyroxine (Levothyroxine Sodium) 88 Mcg Tab 88 Mcg PO DAILY Glipizide 5 Mg Tab 5 Mg PO DAILY Take 30 minutes before a meal Furosemide 20 Mg Tab 20 Mg PO DAILY Allergies: Coded Allergies: bacitracin (Unverified Allergy, Severe, RASH. SKIN BREAKDOWN, 02/19/18) iodine (Unverified Allergy, Severe, 02/19/18) HIVES,SWELLING potassium iodide (Unverified Allergy, Severe, 02/19/18) HIVES,SWELLING povidone-iodine (Unverified Allergy, Severe, 02/19/18) HIVES,SWELLING sodium iodide (Unverified Allergy, Severe, 02/19/18) HIVES,SWELLING sodium iodide (Unverified Allergy, Severe, 02/19/18) HIVES,SWELLING Family History Reviewed, positive for DM. Social History Occasional alcohol. Negative for tobacco or drugs. Physical Exam Vital Signs Vital Signs Date Time Temp Pulse Resp B/P (MAP) Pulse Ox O2 Delivery O2 Flow Rate FiO2 02/19/18 19:34 62 121/65 (83) 62 120/64 (82) 62 125/63 (83) 02/19/18 18:30 71 22 113/68 (83) 95 Room Air 02/19/18 18:17 96.6 79 20 94/53 (67) 98 Physical Exam GENERAL: male sitting up above SKIN: No rashes, ecchymoses or lesions. Cool and dry. HEAD: Atraumatic. Normocephalic. No temporal or scalp tenderness. EYES: Pupils equal round and reactive. Extraocular motions intact. No scleral icterus. No injection or drainage. ENT: Nose without bleeding, purulent drainage or septal hematoma. Throat without erythema, tonsillar hypertrophy or exudate. Uvula midline. Airway patent. NECK: Trachea midline. No JVD or lymphadenopathy. Supple, nontender, no meningeal signs. CARDIOVASCULAR: Regular rate and rhythm. 3/6 DANIE RESPIRATORY: Clear to auscultation. Breath sounds equal bilaterally. No wheezes , rales, or rhonchi. GASTROINTESTINAL: Abdomen soft, non-tender, nondistended. No hepato-splenomegaly , or palpable masses. No guarding. MUSCULOSKELETAL: I lateral lower extremity pitting edema to the midshin. NEUROLOGICAL: Awake and alert. Cranial nerves II through XII intact. Motor and sensory grossly within normal limits. Normal speech. Laboratory Laboratory Tests Test 02/19/18 18:42 White Blood Count 5.4 Red Blood Count 3.85 Hemoglobin 9.5 Hematocrit 31.1 Mean Corpuscular Volume 81.0 Mean Corpuscular Hemoglobin 24.7 Mean Corpuscular Hemoglobin Concent 30.5 Red Cell Distribution Width 21.9 Platelet Count 255 Mean Platelet Volume 7.7 Neutrophils (%) (Auto) 76.9 Lymphocytes (%) (Auto) 12.0 Monocytes (%) (Auto) 9.8 Eosinophils (%) (Auto) 0.6 Basophils (%) (Auto) 0.7 Neutrophils # (Auto) 4.1 Lymphocytes # (Auto) 0.6 Monocytes # (Auto) 0.5 Eosinophils # (Auto) 0.0 Basophils # (Auto) 0.0 CBC Comment AUTO DIFF Differential Comment AUTO DIFF CONFIRMED Prothrombin Time 15.1 Prothromb Time International Ratio 1.5 Activated Partial Thromboplast Time 27.5 Blood Urea Nitrogen 60 Creatinine 2.95 Random Glucose 218 Total Protein 6.8 Albumin 3.6 Calcium Level 8.6 Magnesium Level 2.7 Alkaline Phosphatase 71 Aspartate Amino Transf (AST/SGOT) 114 Alanine Aminotransferase (ALT/SGPT) 138 Total Bilirubin 0.9 Sodium Level 136 Potassium Level 5.3 Chloride Level 105 Carbon Dioxide Level 23.5 Anion Gap 8 Estimat Glomerular Filtration Rate 20 Troponin I LESS THAN 0.02 B-Type Natriuretic Peptide 1727 Lipase 366 Result Diagram: 02/19/18184102/19/181841 Caprini VTE Risk Assessment Caprini VTE Risk Assessment: Mod/High Risk (score >= 2) Caprini Risk Assessment Model Point Value = 1 Point Value = 2 Point Value = 3 Point Value = 5 Age 41-60 Minor surgery BMI > 25 kg/m2 Swollen legs Varicose veins or History of unexplained or recurrent spontaneous Oral contraceptives or hormone replacement Sepsis (< 1 month) Serious lung disease, including pneumonia (< 1 month) Abnormal pulmonary function Acute myocardial infarction Congestive heart failure (< 1 month) History of inflammatory bowel disease Medical patient at bed rest Age 61-74 Arthroscopic surgery Major open surgery (> 45 min) Laparoscopic surgery (> 45 min) Malignancy Confined to bed (> 72 hours) Immobilizing plaster cast Central venous access Age >= 75 History of VTE Family history of VTE Factor V Leiden Prothrombin [id number] Lupus anticoagulant Anticardiolipin antibodies Elevated serum homocysteine Heparin-induced thrombocytopenia Other congenital or acquired thrombophilia Stroke (< 1 month) Elective arthroplasty Hip, pelvis, or leg fracture Acute spinal cord injury (< 1 month) Prophylaxis Regimen Total Risk Factor Score Risk Level Prophylaxis Regimen 0-1 Low Early ambulation 2 Moderate Order ONE of the following: *Sequential Compression Device (SCD) *Heparin 5000 units SQ BID 3-4 Higher Order ONE of the following medications: *Heparin 5000 units SQ TID *Enoxaparin/Lovenox 40 mg SQ daily (WT < 150 kg, CrCl > 30 mL/min) *Enoxaparin/Lovenox 30 mg SQ daily (WT < 150 kg, CrCl > 10-29 mL/min) *Enoxaparin/Lovenox 30 mg SQ BID (WT < 150 kg, CrCl > 30 mL/min) AND/OR *Sequential Compression Device (SCD) 5 or more Highest Order ONE of the following medications: *Heparin 5000 units SQ TID (Preferred with Epidurals) *Enoxaparin/Lovenox 40 mg SQ daily (WT < 150 kg, CrCl > 30 mL/min) *Enoxaparin/Lovenox 30 mg SQ daily (WT < 150 kg, CrCl > 10-29 mL/min) *Enoxaparin/Lovenox 30 mg SQ BID (WT < 150 kg, CrCl > 30 mL/min) AND *Sequential Compression Device (SCD) Assessment and Plan Assessment and Plan Assessment/plan: 1. CHF exacerbation Patient with dyspnea on exertion, bilateral lower extremity edema and BNP of 1727 IV Lasix, caution with diuresis given renal insufficiency EF 20% Cardiology consulted, Dr. Terrazas, appreciate recommendations 2. Acute on chronic renal insufficiency BUN/creatinine 60/2.95, baseline creatinine 1.9 Nephrology consulted, appreciate recommendations Monitor renal function 3. Hypertension/hyperlipidemia/CAD Continue home medications once reconciled 4. Diabetes mellitus Holding home antihyperglycemics SSI Monitor blood glucose 5. Hyperkalemia Potassium 5.3 with hemolysis noted Repeat BMP in am 6. Anemia H&H 9.5/31.1 Baseline 10 Monitor CBC Transfuse as needed FEN Heart healthy renal diet Electrolytes: As above Heparin Physician Certification 2 Midnight Certification Type: Admission for Inpatient Services Order for Inpatient Services The services are ordered in accordance with Medicare regulations or non- Medicare payer requirements, as applicable. In the case of services not specified as inpatient-only, they are appropriately provided as inpatient services in accordance with the 2-midnight benchmark. Estimated LOS (days): 2 2 days is the estimated time the patient will need to remain in the hospital, assuming treatment plan goals are met and no additional complications. Post-Hospital Plan: Not yet determined Rhonda Peck MD Feb 19, 2018 21:57
[2018-02-19] MEDS ORDERED: GLUCAGON 1 MG/ML VIAL OTHER PRN (22:00)
[2018-02-19] MEDS ORDERED: DEXTROSE 50% IN WATER 50 ML VIAL(D50) IV PUSH PRN (22:00)
[2018-02-19] MEDS: HEPARIN SODIUM - SQ 10,000 UNITS/ML VIAL SQ SCH (22:22)
[2018-02-19] MEDS ORDERED: SPIR25TA PO (22:38)
[2018-02-19] MEDS ORDERED: TORS20TA PO (22:40)
[2018-02-19] MEDS ORDERED: SOTA80TA PO (22:40)
[2018-02-19 23:17] VITALS: BP 100/68; PULSE 62; RESP 18; O2SAT 98
[2018-02-20] VITALS (9 sets, daily range): BP systolic 112–139; BP diastolic 57–70; PULSE 56–63; RESP 16–19; TEMP 97.6–98.2; O2SAT 91–100
[2018-02-20 05:58] LABS: AUTOMATED NEUTROPHIL # 5.2 TH/MM3 (1.8-7.7); BASOPHIL # 0.1 TH/MM3 (0-0.2); BASOPHIL % 0.9 % (0.0-2.0); EOSINOPHIL % 0.5 % (0.0-4.0); HEMATOCRIT 28.2 % (39.0-51.0); HEMOGLOBIN 8.6 GM/DL (13.0-17.0); LYMPH % 8.8 % (9.0-44.0); LYMPHOCYTE # 0.6 TH/MM3 (1.0-4.8); MEAN CORPUSCULAR HEMOGLOBIN 24.7 PG (27.0-34.0); MEAN CORPUSCULAR HGB CONC 30.5 % (32.0-36.0); MEAN PLATELET VOLUME 7.5 FL (7.0-11.0); MONO % 10.7 % (0.0-8.0); MONOCYTE # 0.7 TH/MM3 (0-0.9); NEUT % 79.1 % (16.0-70.0); PLATELET COUNT 195 TH/MM3 (150-450); RED BLOOD COUNT 3.49 MIL/MM3 (4.50-5.90); RED CELL DISTRIBUTION WIDTH 21.2 % (11.6-17.2); WHITE BLOOD COUNT 6.6 TH/MM3 (4.0-11.0)
[2018-02-20] MEDS: HEPARIN SODIUM - SQ 10,000 UNITS/ML VIAL SQ SCH (06:08)
[2018-02-20 06:24] LABS: CALCIUM 8.7 MG/DL (8.5-10.1); CREATININE 2.74 MG/DL (0.60-1.30)
[2018-02-20] MEDS: INSULIN ASPART SUPPLEMENTAL SCALE SQ SCH ×4 (08:00→22:57)
--- NOTE | 2018-02-20 08:52 | PD.CONS ---
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 Other notable history of COPD and CKD. The patient presented to our office yesterday with concerns of increasing SOB, BLE edema, orthopnea, fatigue, myalgias and "irritated mouth. " Physical exam reveals thrush, questionable ascites, increase BLE edema, increase pallor and slight jaundice. Outpatient labwork revealed worsening renal function, increase LFTs suggestive of vascular congestion or statin toxicity, and worsening anemia. We recommended that patient go to the hospital for nephrology evaluation and treatment and anemia evaluation. The patient denies signs of bleeding. He denies CP. Since admission, he is diuresing well with lasix IV. He continues to feel worse compared to baseline. Six months ago, he was able to walk the [place]. (Yaima Valdes) Review of Systems Consitutional: COMPLAINS OF: Fatigue, Weight gain, DENIES: Fever, Chills, Weight loss Eyes: DENIES: Amaurosis Fug[place], Change in vision HEENT: DENIES: Lightheadedness, Change in hearing Respiratory: COMPLAINS OF: Cough, Shortness of breath, DENIES: See HPI, Snoring , Wheezing, Sputum production Cardiovascular: DENIES: See HPI, Chest pain, Palpitations, Syncope, Tachycardia Gastrointestinal: DENIES: Nausea, Vomiting, Change in bowel habits, Reflux, Bloody stools, Melena Genitourinary: DENIES: Urinary incontinence, Difficulty voiding Integumentary: DENIES: Rash Neurologic: DENIES: Tingling or numbness, Memory problems, Poor Balance, Stroke symptoms Musculoskeletal: DENIES: Joint pain, Muscle pain, Limited range of motion, Back pain Psychiatric: DENIES: Anxiety, Depression, Sleep disturbances Hematologic: DENIES: Bruising tendencies, Bleeding tendencies Endocrine: DENIES: Weight gain, Weight loss, Thyroid disease (Yaima Valdes ) Past Family Social History Allergies: Coded Allergies: bacitracin (Unverified Allergy, Severe, RASH. SKIN BREAKDOWN, 02/19/18) iodine (Unverified Allergy, Severe, 02/19/18) HIVES,SWELLING potassium iodide (Unverified Allergy, Severe, 02/19/18) HIVES,SWELLING povidone-iodine (Unverified Allergy, Severe, 02/19/18) HIVES,SWELLING sodium iodide (Unverified Allergy, Severe, 02/19/18) HIVES,SWELLING sodium iodide (Unverified Allergy, Severe, 02/19/18) HIVES,SWELLING Past Medical History See HPI Past Surgical History ICD lead revision 06/2014 PM -> ICD 05/2014 EP study 05/2014 -inducible VT Cardioversion 01/2013 Ablation X 2 2011 Stents 2007 PPM 2006 Reported Medications Reported Meds & Active Scripts Active Oxygen (O2) Device Liter MIGUEL.CANULA CONTINUOUS Oxygen Concentrator Portable Gaseous 2 L/min via Nasal Canula Continuous For 99 months Reported Torsemide 20 Mg Tab 20 Mg PO DAILY Sotalol (Sotalol HCl) 80 Mg Tab 40 Mg PO BID Spironolactone 25 Mg Tab 25 Mg PO DAILY Tricor (Fenofibrate) 48 Mg Tab 48 Mg PO DAILY Tke with food. Ranitidine (Ranitidine HCl) 150 Mg Tab 150 Mg PO DAILY Levothyroxine (Levothyroxine Sodium) 88 Mcg Tab 88 Mcg PO DAILY Glipizide 5 Mg Tab 5 Mg PO DAILY Take 30 minutes before a meal Active Ordered Medications Current Medications Medications (Trade) Dose Ordered Sig/[place] Route Start Time Stop Time Status Last Admin (NS Flush) 2 ml UNSCH PRN IV FLUSH 02/19/18 21:45 (NS Flush) 2 ml BID IV FLUSH 02/20/18 09:00 (Tylenol) 650 mg Q4H PRN PO 02/19/18 21:45 (Zofran Inj) 4 mg Q6H PRN IVP 02/19/18 21:45 (Narcan Inj) 0.4 mg UNSCH PRN IV PUSH 02/19/18 21:45 (Lanny-Colace) 1 tab BID PO 02/20/18 09:00 (Milk Of Magnesia Liq) 30 ml Q12H PRN PO 02/19/18 21:45 (Senokot) 17.2 mg Q12H PRN PO 02/19/18 21:45 (Dulcolax Supp) 10 mg DAILY PRN RECTAL 02/19/18 21:45 (Lactulose Liq) 30 ml DAILY PRN PO 02/19/18 21:45 (Lasix Inj) 20 mg BID@,18 IV PUSH 02/20/18 09:00 (Heparin Inj) 5,000 units Q8HR SQ 02/19/18 22:00 02/20/18 06:08 (D50w (Vial) Inj) 50 ml UNSCH PRN IV PUSH 02/19/18 22:00 (Glucagon Inj) 1 mg UNSCH PRN OTHER 02/19/18 22:00 (NovoLOG SUPPLEMENTAL SCALE) 1 ACHS SLIDING SCALE SQ 02/20/18 08:00 Family History non contributory Social History , lives alone, son helping to care for him (Yaima Valdes) Physical Exam Vital Signs Vital Signs Date Time Temp Pulse Resp B/P (MAP) Pulse Ox O2 Delivery O2 Flow Rate FiO2 02/20/18 05:59 62 16 123/63 (83) 98 Nasal Cannula 2.00 02/20/18 03:50 62 18 123/63 (83) 98 Room Air 2.00 02/20/18 02:04 62 17 139/70 (93) 98 Nasal Cannula 2.00 02/20/18 00:37 62 17 118/58 (78) 99 Nasal Cannula 2.00 02/19/18 23:17 62 18 100/68 (79) 98 Nasal Cannula 02/19/18 19:34 62 121/65 (83) 62 120/64 (82) 62 125/63 (83) 02/19/18 18:30 71 22 113/68 (83) 95 Room Air 02/19/18 18:17 96.6 79 20 94/53 (67) 98 Physical Exam GENERAL: Elderly appearing male SKIN: Warm and dry. HEAD: Atraumatic. Normocephalic. EYES: Pupils equal and round. No scleral icterus. No injection or drainage. ENT: No nasal bleeding or discharge. Mucous membranes pink and moist. THRUSH NECK: Trachea midline. 3 cm JVD CARDIOVASCULAR: Regular rate and rhythm. LEFT chest ICD, diastolic murmur RESPIRATORY: N Clear to auscultation. Breath sounds equal bilaterally., Nasal cannula GASTROINTESTINAL: Slighly distended, questionable ascites MUSCULOSKELETAL: Extremities without clubbing, cyanosis, 2+ BLE edema NEUROLOGICAL: Awake and alert. No obvious cranial nerve deficits. Motor grossly within normal limits. Five out of 5 muscle strength in the arms and legs. Normal speech. PSYCHIATRIC: Appropriate mood and affect; insight and judgment normal. Laboratory Laboratory Tests Test 02/19/18 18:42 02/20/18 05:34 White Blood Count 5.4 6.6 Red Blood Count 3.85 3.49 Hemoglobin 9.5 8.6 Hematocrit 31.1 28.2 Mean Corpuscular Volume 81.0 81.0 Mean Corpuscular Hemoglobin 24.7 24.7 Mean Corpuscular Hemoglobin Concent 30.5 30.5 Red Cell Distribution Width 21.9 21.2 Platelet Count 255 195 Mean Platelet Volume 7.7 7.5 Neutrophils (%) (Auto) 76.9 79.1 Lymphocytes (%) (Auto) 12.0 8.8 Monocytes (%) (Auto) 9.8 10.7 Eosinophils (%) (Auto) 0.6 0.5 Basophils (%) (Auto) 0.7 0.9 Neutrophils # (Auto) 4.1 5.2 Lymphocytes # (Auto) 0.6 0.6 Monocytes # (Auto) 0.5 0.7 Eosinophils # (Auto) 0.0 0.0 Basophils # (Auto) 0.0 0.1 CBC Comment AUTO DIFF AUTO DIFF Differential Comment AUTO DIFF CONFIRMED AUTO DIFF CONFIRMED Prothrombin Time 15.1 Prothromb Time International Ratio 1.5 Activated Partial Thromboplast Time 27.5 Blood Urea Nitrogen 60 61 Creatinine 2.95 2.74 Random Glucose 218 136 Total Protein 6.8 Albumin 3.6 Calcium Level 8.6 8.7 Magnesium Level 2.7 Alkaline Phosphatase 71 Aspartate Amino Transf (AST/SGOT) 114 Alanine Aminotransferase (ALT/SGPT) 138 Total Bilirubin 0.9 Sodium Level 136 141 Potassium Level 5.3 4.2 Chloride Level 105 107 Carbon Dioxide Level 23.5 27.0 Anion Gap 8 7 Estimat Glomerular Filtration Rate 20 22 Troponin I LESS THAN 0.02 B-Type Natriuretic Peptide 1727 Lipase 366 (Yaima Valdes) Result Diagram: 02/20/18 0534 02/20/18 0534 Imaging Last 72 hours Impressions Chest X-Ray 02/19/18 0000 Signed Impressions: Service Date/Time: Monday, February 19, 2018 20:07 - CONCLUSION: 1. Cardiomegaly with mild edema pattern and trace pleural fluid. 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 PLAN: Consult nephrology pending, Diuretic management per Nephrology Abdominal US to evaluate for ascites. Will hold Xarelto pending possible paracentesis. Last Xarelto dose 02/18/2018 Continue to hold statin Nystatin mouth wash Restart Sotalol 40 mg BID The patient was seen and evaluated by Dr Mk marin who completed face to face encounter and physical exam and participated in evaluation and management. (Yaima Valdes) Yaima Valdes Feb 20, 2018 08:52 Alka Terrazas MD Feb 20, 2018 13:46
[2018-02-20] MEDS: DOCUSATE SODIUM 50 MG/SENNA 8.6 MG TAB PO SCH ×2 (09:00→21:05)
[2018-02-20] MEDS ORDERED: PILL SPLITTER OTHER PRN (09:30)
[2018-02-20] MEDS: SODIUM CHLORIDE 0.9% FLUSH 10 ML FLUSH IV FLUSH SCH ×2 (09:53→21:05)
[2018-02-20] MEDS: SOTALOL HCL 80 MG TAB PO SCH ×2 (09:53→21:05)
[2018-02-20] MEDS: FUROSEMIDE 20 MG/2 ML VIAL IV PUSH SCH ×2 (09:53→17:01)
[2018-02-20] MEDS: NYSTATIN SUSP 500,000 U/5 ML CUP SWISH-SPIT SCH ×4 (09:55→21:06)
--- NOTE | 2018-02-20 10:28 | HHI.PR ---
Subjective Remarks Patient in bed, c/o shortness of breath. Has lower extremity edema. No n/v/d/ c. Objective Vitals Vital Signs Date Time Temp Pulse Resp B/P (MAP) Pulse Ox O2 Delivery O2 Flow Rate FiO2 02/20/18 07:35 98.2 63 19 123/68 (86) 100 Nasal Cannula 3.00 02/20/18 07:35 63 19 100 Nasal Cannula 3.00 02/20/18 05:59 62 16 123/63 (83) 98 Nasal Cannula 2.00 02/20/18 03:50 62 18 123/63 (83) 98 Room Air 2.00 02/20/18 02:04 62 17 139/70 (93) 98 Nasal Cannula 2.00 02/20/18 00:37 62 17 118/58 (78) 99 Nasal Cannula 2.00 02/19/18 23:17 62 18 100/68 (79) 98 Nasal Cannula 02/19/18 19:34 62 121/65 (83) 62 120/64 (82) 62 125/63 (83) 02/19/18 18:30 71 22 113/68 (83) 95 Room Air 02/19/18 18:17 96.6 79 20 94/53 (67) 98 Result Diagram: 02/20/18 0534 02/20/18 0534 Imaging Last Impressions Abdomen Ultrasound 02/20/18 0000 Signed Impressions: Service Date/Time: February 09:36 - CONCLUSION: Trace fluid around the liver in the right upper abdominal quadrant. Insufficient volume for percutaneous drainage. Virgilio Devries MD Chest X-Ray 02/19/18 0000 Signed Impressions: Service Date/Time: Monday, February 19, 2018 20:07 - CONCLUSION: 1. Cardiomegaly with mild edema pattern and trace pleural fluid. Joseph Balderas MD Objective Remarks GENERAL: male sitting up above CARDIOVASCULAR: Regular rate and rhythm. 3/6 DANIE RESPIRATORY: Breath sounds decreased. No wheezes, rales, or rhonchi. GASTROINTESTINAL: Abdomen soft, non-tender, nondistended. No hepato-splenomegaly , or palpable masses. No guarding. MUSCULOSKELETAL: Bilateral lower extremity pitting edema to the midshin. NEUROLOGICAL: Awake and alert. Cranial nerves II through XII intact. Motor and sensory grossly within normal limits. Normal speech. A/P Assessment and Plan Acute on chronic Systolic CHF (EF 20%0 with exacerbation Patient with dyspnea on exertion, bilateral lower extremity edema and BNP of 1727 IV Lasix, caution with diuresis given renal insufficiency EF 20% Cardiology consulted, Dr. Terrazas, appreciate recommendations Start sotalol per cardio Requesting US abd for ascites and paracenteses Acute on chronic renal insufficiency BUN/creatinine 60/2.95, baseline creatinine 1.9 Nephrology consulted, appreciate recommendations Monitor renal function Ascites mild, US abd and if enough fluid can do paracentesis Hypertension/hyperlipidemia/CAD Continue home medications once reconciled Diabetes mellitus type 2 Holding home antihyperglycemics SSI Monitor blood glucose Hyperkalemia Potassium 5.3 with hemolysis noted Repeat BMP in am Anemia H&H 9.5/31.1 Baseline 10 Monitor CBC Transfuse as needed Heart healthy renal diet Electrolytes: As above Heparin Discussed with the patient, nurse Yara Schneider MD Feb 20, 2018 10:28
[2018-02-20 12:09] LABS: INTERNATIONAL NORMALIZED RATIO 1.3 RATIO; PROTHROMBIN TIME - PATIENT 13.4 SEC (9.8-11.6)
--- NOTE | 2018-02-20 12:17 | RADRPT ---
EXAM DATE/TIME: 02/20/2018 09:36 [facility] COMPARISON: No previous studies available for comparison. INDICATIONS : Abdominal distention. MEDICAL HISTORY : Carcinoma, prostate. Hypercholesterolemia. Arthritis. HTN. Dyspnea. Ulcer. Irregular heartbeat. Diabe gus. Anticoagulant therapy, Xarelto. SURGICAL HISTORY : Coronary artery stent. Pacemaker. Bilateral cataract extraction with lens implants. Cardiac ablatio ns. Vasectomy. Prostate seed implant. Parathyroidectomy. ENCOUNTER: Initial ACUITY: 1 day PAIN SCORE: 0/10 LOCATION: Abdomen. AREA EVALUATED: Abdomen. FINDINGS: Imaging of the abdomen and pelvis was performed to evaluate for ascites for possible paracentesis. T race fluid around the liver in the right upper abdominal quadrant. Insufficient volume for percutaneo us paracentesis. CONCLUSION: Trace fluid around the liver in the right upper abdominal quadrant. Insufficient volume for perc utaneous drainage. Virgilio Devries MD on February 20, 2018 at 12:13 Board Certified Radiologist. This report was verified electronically.
--- NOTE | 2018-02-20 17:27 | PD.CONS ---
[facility] Service Nephrology Consult Requested By Dr. Schneider Reason for Consult Acute and chronic kidney disease Primary Care Physician [facility] History of Present Illness Patient is a 87-year-old the white male with history of cardiomyopathy EF of 20% , congestive heart failure, coronary artery disease, who went to Dr. Terrazas office and was found to be pale and he was sent for blood test and then advised to come to the emergency, his creatinine was 2.9 Yesterday and dropped to 2.7, . He came to the emergency due to abnormal blood tests, patient has no knowledge of kidney problems prior to this admission, his urine output is good. Dysuria burning he did have a history of prostate cancer in the past. In October his creatinine was 1.6. Review of Systems Constitutional: COMPLAINS OF: Fatigue Respiratory: COMPLAINS OF: Shortness of breath Cardiovascular: COMPLAINS OF: Lower Extremity Edema Musculoskeletal: COMPLAINS OF: Joint pain, Muscle aches, Stiffness Neurologic: COMPLAINS OF: Abnormal gait Past Family Social History Allergies: Coded Allergies: bacitracin (Unverified Allergy, Severe, RASH. SKIN BREAKDOWN, 02/19/18) iodine (Unverified Allergy, Severe, 02/19/18) HIVES,SWELLING potassium iodide (Unverified Allergy, Severe, 02/19/18) HIVES,SWELLING povidone-iodine (Unverified Allergy, Severe, 02/19/18) HIVES,SWELLING sodium iodide (Unverified Allergy, Severe, 02/19/18) HIVES,SWELLING sodium iodide (Unverified Allergy, Severe, 02/19/18) HIVES,SWELLING Past Medical History Hypertension Hyperlipidemia, CAD s/p Stent, Pacemaker ([employer]), CHF (EF of 20%), Prostate CA Diabetes Past Surgical History Cardiac Stent, Pacemaker, Parathyroidectomy, Bilateral Cataract Surgery, Vasectomy, Prostate Seeds Reported Medications Reported Meds & Active Scripts Active Oxygen (O2) Device Liter MIGUEL.CANULA CONTINUOUS Oxygen Concentrator Portable Gaseous 2 L/min via Nasal Canula Continuous For 99 months Reported Torsemide 20 Mg Tab 20 Mg PO DAILY Sotalol (Sotalol HCl) 80 Mg Tab 40 Mg PO BID Spironolactone 25 Mg Tab 25 Mg PO DAILY Tricor (Fenofibrate) 48 Mg Tab 48 Mg PO DAILY Tke with food. Ranitidine (Ranitidine HCl) 150 Mg Tab 150 Mg PO DAILY Levothyroxine (Levothyroxine Sodium) 88 Mcg Tab 88 Mcg PO DAILY Glipizide 5 Mg Tab 5 Mg PO DAILY Take 30 minutes before a meal Active Ordered Medications Current Medications Medications (Trade) Dose Ordered Sig/[place] Route Start Time Stop Time Status Last Admin (NS Flush) 2 ml UNSCH PRN IV FLUSH 02/19/18 21:45 (NS Flush) 2 ml BID IV FLUSH 02/20/18 09:00 02/20/18 09:53 (Tylenol) 650 mg Q4H PRN PO 02/19/18 21:45 (Narcan Inj) 0.4 mg UNSCH PRN IV PUSH 02/19/18 21:45 (Lanny-Colace) 1 tab BID PO 02/20/18 09:00 (Milk Of Magnesia Liq) 30 ml Q12H PRN PO 02/19/18 21:45 (Senokot) 17.2 mg Q12H PRN PO 02/19/18 21:45 (Dulcolax Supp) 10 mg DAILY PRN RECTAL 02/19/18 21:45 (Lactulose Liq) 30 ml DAILY PRN PO 02/19/18 21:45 (Lasix Inj) 20 mg BID@18 IV PUSH 02/20/18 09:00 02/20/18 17:01 (D50w (Vial) Inj) 50 ml UNSCH PRN IV PUSH 02/19/18 22:00 (Glucagon Inj) 1 mg UNSCH PRN OTHER 02/19/18 22:00 (NovoLOG SUPPLEMENTAL SCALE) 1 ACHS SLIDING SCALE SQ 02/20/18 08:00 (Betapace) 40 mg Q12HR PO 02/20/18 10:00 02/20/18 09:53 (Mycostatin Liq) 5 ml QID SWISH-SPIT 02/20/18 09:15 02/20/18 17:02 (Pill Splitter) 1 ea UNSCH PRN OTHER 02/20/18 09:30 Family History Noncontributory Social History And I smoking or alcohol use Physical Exam Vital Signs Vital Signs Date Time Temp Pulse Resp B/P (MAP) Pulse Ox O2 Delivery O2 Flow Rate FiO2 02/20/18 16:28 97.6 60 18 112/57 (75) 91 02/20/18 14:36 63 18 130/62 (84) 99 02/20/18 12:27 63 16 136/64 (88) 100 Nasal Cannula 3.00 02/20/18 07:35 98.2 63 19 123/68 (86) 100 Nasal Cannula 3.00 02/20/18 07:35 63 19 100 Nasal Cannula 3.00 02/20/18 05:59 62 16 123/63 (83) 98 Nasal Cannula 2.00 02/20/18 03:50 62 18 123/63 (83) 98 Room Air 2.00 02/20/18 02:04 62 17 139/70 (93) 98 Nasal Cannula 2.00 02/20/18 00:37 62 17 118/58 (78) 99 Nasal Cannula 2.00 02/19/18 23:17 62 18 100/68 (79) 98 Nasal Cannula 02/19/18 19:34 62 121/65 (83) 62 120/64 (82) 62 125/63 (83) 02/19/18 18:30 71 22 113/68 (83) 95 Room Air 02/19/18 18:17 96.6 79 20 94/53 (67) 98 Physical Exam GENERAL: Well-nourished, well-developed patient. SKIN: Warm and dry. HEAD: Normocephalic. EYES: No scleral icterus. No injection or drainage. NECK: Supple, trachea midline. No JVD or lymphadenopathy. CARDIOVASCULAR: Irregular 2/6 systolic murmur RESPIRATORY: Breath sounds equal bilaterally. No accessory muscle use. GASTROINTESTINAL: Abdomen soft, non-tender, nondistended. EXTREMITIES: No cyanosis, 2+ edema. NEUROLOGICAL: Awake, alert, and oriented x 3. Non-focal. Laboratory Laboratory Tests Test 02/19/18 18:42 02/20/18 05:34 02/20/18 11:26 White Blood Count 5.4 6.6 Red Blood Count 3.85 3.49 Hemoglobin 9.5 8.6 Hematocrit 31.1 28.2 Mean Corpuscular Volume 81.0 81.0 Mean Corpuscular Hemoglobin 24.7 24.7 Mean Corpuscular Hemoglobin Concent 30.5 30.5 Red Cell Distribution Width 21.9 21.2 Platelet Count 255 195 Mean Platelet Volume 7.7 7.5 Neutrophils (%) (Auto) 76.9 79.1 Lymphocytes (%) (Auto) 12.0 8.8 Monocytes (%) (Auto) 9.8 10.7 Eosinophils (%) (Auto) 0.6 0.5 Basophils (%) (Auto) 0.7 0.9 Neutrophils # (Auto) 4.1 5.2 Lymphocytes # (Auto) 0.6 0.6 Monocytes # (Auto) 0.5 0.7 Eosinophils # (Auto) 0.0 0.0 Basophils # (Auto) 0.0 0.1 CBC Comment AUTO DIFF AUTO DIFF Differential Comment AUTO DIFF CONFIRMED AUTO DIFF CONFIRMED Prothrombin Time 15.1 13.4 Prothromb Time International Ratio 1.5 1.3 Activated Partial Thromboplast Time 27.5 Blood Urea Nitrogen 60 61 Creatinine 2.95 2.74 Random Glucose 218 136 Total Protein 6.8 Albumin 3.6 Calcium Level 8.6 8.7 Magnesium Level 2.7 Alkaline Phosphatase 71 Aspartate Amino Transf (AST/SGOT) 114 Alanine Aminotransferase (ALT/SGPT) 138 Total Bilirubin 0.9 Sodium Level 136 141 Potassium Level 5.3 4.2 Chloride Level 105 107 Carbon Dioxide Level 23.5 27.0 Anion Gap 8 7 Estimat Glomerular Filtration Rate 20 22 Troponin I LESS THAN 0.02 B-Type Natriuretic Peptide 1727 Lipase 366 Result Diagram: 02/20/18 0534 02/20/18 0534 Imaging Last Impressions Abdomen Ultrasound 02/20/18 0000 Signed Impressions: Service Date/Time: February 09:36 - CONCLUSION: Trace fluid around the liver in the right upper abdominal quadrant. Insufficient volume for percutaneous drainage. Virgilio Devries MD Chest X-Ray 02/19/18 0000 Signed Impressions: Service Date/Time: Monday, February 19, 2018 20:07 - CONCLUSION: 1. Cardiomegaly with mild edema pattern and trace pleural fluid. Joseph Balderas MD Assessment and Plan Problem List: (1) Acute renal failure ICD Codes: N17.9 - Acute kidney failure, unspecified Status: Acute Plan: Patient has cardiorenal syndrome continue with Lasix for diuresis Monitor kidney function Cardiomyopathy with EF of 20% Avoid nephrotoxin Order ultrasound of the kidney for baseline (2) CHF (congestive heart failure) ICD Codes: I50.9 - Heart failure, unspecified Status: Acute Plan: Severe cardiomyopathy EF 20% (3) A-fib ICD Codes: I48.91 - Unspecified atrial fibrillation Plan: Rate controlled (4) DM (diabetes mellitus) ICD Codes: E11.9 - Type 2 diabetes mellitus without complications Plan: Follow blood glucose Problem Qualifiers (1) Acute renal failure: Qualified Codes: N17.9 - Acute kidney failure, unspecified (2) CHF (congestive heart failure): Qualified Codes: I50.20 - Unspecified systolic (congestive) heart failure (3) A-fib: Qualified Codes: I48.2 - Chronic atrial fibrillation Wesley Palacios MD Feb 20, 2018 17:27
[2018-02-20] MEDS ORDERED: RIVAROXABAN 15 MG TAB PO SCH (18:00)
--- NOTE | 2018-02-20 18:46 | EKG ---
Date Performed: 02/19/2018 Time Performed: 18:39:16 PTAGE: 87 years EKG: ELECTRONIC ATRIAL PACEMAKER ELECTRONIC VENTRICULAR PACEMAKER Since the previous tracing, no significant change noted ABNORMAL RHYTHM ECG PREVIOUS TRACING : 11/08/17 @ 1558 DOCTOR: Jose Hutson Interpretating Date/Time 02/20/2018 18:44:23
--- NOTE | 2018-02-20 22:42 | RADRPT ---
EXAM DATE/TIME: 02/20/2018 21:30 [facility] COMPARISON: No previous studies available for comparison. EXTERNAL COMPARISON : [facility], US BILATERAL RENAL, July 27, 2009. [facility]. CT ABDOMEN & PELVIS W /O CONTRAST, March 07, 2016. INDICATIONS : Increased lab values. MEDICAL HISTORY : Congestive heart failure. Hypercholesterolemia. Hypertension. Neck pain. Numbness. Anticoagulant ther apy, Xarelto. Dyspnea. Ulcers. Hiatal hernia. Heartburn. Prostate cancer. Arthritis. Back problems. J oint pain. Muscle pain. Diabetes. Radiation therapy. Measles. SURGICAL HISTORY : Pacemaker. Defibrillator. Prathyroidectomy. ENCOUNTER: Initial ACUITY: 1 day PAIN SCORE: 0/10 LOCATION: Bilateral flank MEASUREMENTS: RIGHT KIDNEY: 10.2 x 6.3 x 5.4 cm LEFT KIDNEY: 11.2 x 5.9 x 5.7 cm FINDINGS: RIGHT KIDNEY: Renal cortex is normal in thickness and echotexture. No hydronephrosis, stone, or solid mass. There are 2 small benign-appearing cystic structures. LEFT KIDNEY: Renal cortex is normal in thickness and echotexture. No hydronephrosis, stone, or mass. BLADDER: Within normal limits given the degree of distension. Small bilateral pleural effusions are noted. There is minimal fluid in the pelvis. CONCLUSION: 1. No evidence of hydronephrosis. 2. 2 small right renal cystic structures which are benign in appearance. 3. Small bilateral pleural effusions and minimal fluid in the pelvis. Kirby George MD on February 20, 2018 at 22:38 Board Certified Radiologist. This report was verified electronically.
[2018-02-21] VITALS (7 sets, daily range): BP systolic 108–126; BP diastolic 39–67; PULSE 60–77; RESP 18; TEMP 97.2–98.8; O2SAT 93–100
[2018-02-21] MEDS: INSULIN ASPART SUPPLEMENTAL SCALE SQ SCH ×4 (07:39→21:00)
[2018-02-21] MEDS: FUROSEMIDE 20 MG/2 ML VIAL IV PUSH SCH ×2 (08:01→18:14)
[2018-02-21] MEDS: SODIUM CHLORIDE 0.9% FLUSH 10 ML FLUSH IV FLUSH SCH ×2 (08:01→22:11)
[2018-02-21] MEDS: NYSTATIN SUSP 500,000 U/5 ML CUP SWISH-SPIT SCH ×4 (08:01→22:11)
[2018-02-21] MEDS: DOCUSATE SODIUM 50 MG/SENNA 8.6 MG TAB PO SCH ×2 (08:02→22:11)
[2018-02-21 08:42] LABS: ALBUMIN 3.3 GM/DL (3.4-5.0); BICARBONATE 27.2 MEQ/L (21.0-32.0); CALCIUM 9.2 MG/DL (8.5-10.1); CREATININE 2.23 MG/DL (0.60-1.30); PHOSPHORUS 3.8 MG/DL (2.5-4.9)
[2018-02-21] MEDS: SOTALOL HCL 80 MG TAB PO SCH ×2 (09:27→22:11)
--- NOTE | 2018-02-21 11:28 | PD.CARD.PN ---
Subjective Subjective Remarks The patient denies acute complaints this morning. Wants to go home. Cr is improving. He is able to lay flat. He continues to have BLE swelling and elevated JVD. He has not ambulated. Ab US was negative for ascites. (Yaima Valdes) Objective Medications Current Medications Medications (Trade) Dose Ordered Sig/[place] Route Start Time Stop Time Status Last Admin (NS Flush) 2 ml UNSCH PRN IV FLUSH 02/19/18 21:45 (NS Flush) 2 ml BID IV FLUSH 02/20/18 09:00 02/21/18 08:01 (Tylenol) 650 mg Q4H PRN PO 02/19/18 21:45 (Narcan Inj) 0.4 mg UNSCH PRN IV PUSH 02/19/18 21:45 (Lanny-Colace) 1 tab BID PO 02/20/18 09:00 02/21/18 08:02 (Milk Of Magnesia Liq) 30 ml Q12H PRN PO 02/19/18 21:45 (Senokot) 17.2 mg Q12H PRN PO 02/19/18 21:45 (Dulcolax Supp) 10 mg DAILY PRN RECTAL 02/19/18 21:45 (Lactulose Liq) 30 ml DAILY PRN PO 02/19/18 21:45 (Lasix Inj) 20 mg BID@18 IV PUSH 02/20/18 09:00 02/21/18 08:01 (D50w (Vial) Inj) 50 ml UNSCH PRN IV PUSH 02/19/18 22:00 (Glucagon Inj) 1 mg UNSCH PRN OTHER 02/19/18 22:00 (NovoLOG SUPPLEMENTAL SCALE) 1 ACHS SLIDING SCALE SQ 02/20/18 08:00 02/20/18 22:57 (Betapace) 40 mg Q12HR PO 02/20/18 10:00 02/21/18 09:27 (Mycostatin Liq) 5 ml QID SWISH-SPIT 02/20/18 09:15 02/21/18 08:01 (Pill Splitter) 1 ea UNSCH PRN OTHER 02/20/18 09:30 Vital Signs / I&O Vital Signs Date Time Temp Pulse Resp B/P (MAP) Pulse Ox O2 Delivery O2 Flow Rate FiO2 02/21/18 08:00 97.2 60 18 115/58 (77) 100 02/21/18 04:00 98.1 65 18 115/67 (83) 93 02/21/18 00:00 98.0 60 18 108/62 (77) 98 02/20/18 20:00 98.0 56 18 130/60 (83) 96 02/20/18 16:28 97.6 60 18 112/57 (75) 91 02/20/18 14:36 63 18 130/62 (84) 99 02/20/18 12:27 63 16 136/64 (88) 100 Nasal Cannula 3.00 I/O 02/20/18 02/20/18 02/20/18 02/21/18 02/21/18 02/21/18 07:00 15:00 23:00 07:00 15:00 23:00 Intake Total 480 ml Output Total 1220 ml Balance -740 ml Intake Oral 480 ml Output Urine Total 1220 ml # Voids 2 1 Physical Exam GENERAL: Elderly male laying at 15 degrees in the bed comfortably. SKIN: Warm and dry. HEAD: Normocephalic. EYES: No scleral icterus. No injection or drainage. NECK: Supple, trachea midline. 4 cm JVD CARDIOVASCULAR: Regular rate and rhythm, left chest ICD RESPIRATORY: Breath sounds equal bilaterally. No accessory muscle use. GASTROINTESTINAL: Abdomen soft, non-tender, nondistended. MUSCULOSKELETAL: No cyanosis, BLE edema BACK: Nontender without obvious deformity. Laboratory Laboratory Tests Test 02/20/18 11:26 02/21/18 06:09 Prothrombin Time 13.4 SEC Prothromb Time International Ratio 1.3 RATIO Blood Urea Nitrogen 54 MG/DL Creatinine 2.23 MG/DL Random Glucose 46 MG/DL Albumin 3.3 GM/DL Calcium Level 9.2 MG/DL Phosphorus Level 3.8 MG/DL Sodium Level 143 MEQ/L Potassium Level 3.7 MEQ/L Chloride Level 107 MEQ/L Carbon Dioxide Level 27.2 MEQ/L Anion Gap 9 MEQ/L Estimat Glomerular Filtration Rate 28 ML/MIN Imaging Last 72 hours Impressions Renal Ultrasound 02/20/18 0000 Signed Impressions: Service Date/Time: February 21:30 - CONCLUSION: 1. No evidence of hydronephrosis. 2. 2 small right renal cystic structures which are benign in appearance. 3. Small bilateral pleural effusions and minimal fluid in the pelvis. Kirby George MD Abdomen Ultrasound 02/20/18 0000 Signed Impressions: Service Date/Time: February 09:36 - CONCLUSION: Trace fluid around the liver in the right upper abdominal quadrant. Insufficient volume for percutaneous drainage. Virgilio Devries MD Chest X-Ray 02/19/18 0000 Signed Impressions: Service Date/Time: Monday, February 19, 2018 20:07 - CONCLUSION: 1. Cardiomegaly with mild edema pattern and trace pleural fluid. 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 PLAN: Resume Xarelto 15 mg with dinner Continue lasix IV dosed per Nephrology Continue Sotalol Hold statin, follow up LFT outpt and resume when LFT normalize The patient may be discharged tomorrow per cardiology pending clinical course. We will follow limited echo outpatient and may consider BiVent The patient was seen and evaluated by Dr Mk marin who completed face to face encounter and physical exam and participated in evaluation and management. (Yaima Valdes) Assessment and Plan The exam, history, and the medical decision-making described in the above note were completed with the assistance of the mid-level provider. I reviewed and agree with the findings presented. I attest that I had a [id number] encounter with the patient on the same day, and personally performed and documented my assessment and findings in the medical record . Very ill will reassess in office. (Alka Terrazas MD) Yaima Valdes Feb 21, 2018 11:28 Alka Terrazas MD Feb 21, 2018 15:02
[2018-02-21] MEDS ORDERED: FUROSEMIDE 20 MG/2 ML VIAL IV PUSH ONE (16:15)
[2018-02-21] MEDS ORDERED: POTASSIUM CHLORIDE 10 MEQ CONTROLLED RELEASE TAB PO ONE (16:15)
--- NOTE | 2018-02-21 16:21 | HHI.PR ---
Subjective Remarks Patient says he is feeling all right. Denies any chest pain or shortness of breath. Swelling is going down. Objective Vital Signs Date Time Temp Pulse Resp B/P (MAP) Pulse Ox O2 Delivery O2 Flow Rate FiO2 02/21/18 16:02 97.5 77 18 114/62 (79) 98 02/21/18 12:00 98.1 60 18 126/39 (68) 99 02/21/18 08:00 97.2 60 18 115/58 (77) 100 02/21/18 04:00 98.1 65 18 115/67 (83) 93 02/21/18 00:00 98.0 60 18 108/62 (77) 98 02/20/18 20:00 98.0 56 18 130/60 (83) 96 02/20/18 16:28 97.6 60 18 112/57 (75) 91 I/O 02/20/18 02/20/18 02/20/18 02/21/18 02/21/18 02/21/18 07:00 15:00 23:00 07:00 15:00 23:00 Intake Total 480 ml Output Total 1220 ml Balance -740 ml Intake Oral 480 ml Output Urine Total 1220 ml # Voids 2 1 Result Diagram: 02/20/18 0534 02/21/18 0609 Objective Remarks GENERAL: Patient appears comfortable. SKIN: Warm and dry. HEAD: Normocephalic. EYES: No scleral icterus. No injection or drainage. NECK: Supple, trachea midline. Marketed JVD. CARDIOVASCULAR: Regular rate and rhythm without murmurs, gallops, or rubs. RESPIRATORY: Breath sounds equal bilaterally. No accessory muscle use. GASTROINTESTINAL: Abdomen soft, non-tender, nondistended. MUSCULOSKELETAL: No cyanosis. +2 bilateral lower extremity edema. BACK: Nontender without obvious deformity. No CVA tenderness. A/P Assessment and Plan //Acute on chronic Systolic CHF (EF 20%0 with exacerbation Patient with dyspnea on exertion, bilateral lower extremity edema and BNP of 1727 IV Lasix, caution with diuresis given renal insufficiency EF 20% Cardiology consulted, Dr. Terrazas, appreciate recommendations Start sotalol per cardio Requesting US abd for ascites and paracenteses = Insufficient volume for paracentesis. Restart at a coagulation. = QRS of 210. Likely patient would benefit from biventricular pacer. Still with marked JVD on exam. Extra dose of IV Lasix today. Follow-up with cardiology as outpatient after discharge. //Acute on chronic renal insufficiency BUN/creatinine 60/2.95, baseline creatinine 1.9 Nephrology consulted, appreciate recommendations Monitor renal function = Improving. Appreciate nephrology assistance. //Ascites mild, US abd and if enough fluid can do paracentesis //Hypertension/hyperlipidemia/CAD Continue home medications once reconciled //Diabetes mellitus type 2 Holding home antihyperglycemics SSI Monitor blood glucose = Glycemia this morning. Likely rebound secondary to being on regular diet. Will place on diabetic diet. With fluid restrictions. //Hyperkalemia Potassium 5.3 with hemolysis noted Repeat BMP in am = Resolved. //Anemia H&H 9.5/31.1 Baseline 10 Monitor CBC Transfuse as needed //Heart healthy renal diet Electrolytes: As above Heparin Discharge Planning Likely discharge home tomorrow if stable. Follow-up with cardiology as outpatient as patient will likely need biventricular pacer. Wesley Stone MD Feb 21, 2018 16:20
--- NOTE | 2018-02-21 16:57 | HHI.NPPN ---
Subjective History of Present Illness Patient is 87 years old with cardiomyopathy EF of 20% chronic renal insufficiency Objective Data Data 02/21/18 02/22/18 19:00 07:00 # Voids 1 Vital Signs Date Time Temp Pulse Resp B/P (MAP) Pulse Ox O2 Delivery O2 Flow Rate FiO2 02/21/18 16:02 97.5 77 18 114/62 (79) 98 02/21/18 12:00 98.1 60 18 126/39 (68) 99 02/21/18 08:00 97.2 60 18 115/58 (77) 100 02/21/18 04:00 98.1 65 18 115/67 (83) 93 02/21/18 00:00 98.0 60 18 108/62 (77) 98 02/20/18 20:00 98.0 56 18 130/60 (83) 96 -: 02/20/18 0534 02/21/18 0609 Physical Exam General Appearance: Well Developed, Well Nourished Neck Neck Exam: Neck Supple Pulmonary Resp Exam: Clear Bilaterally, Breath Sounds Equal Cardiology CV Exam: Regular, Normal Sinus Rhythm Gastrointestinal/Abdomen GI Exam: Soft, Non-Tender, Bowel Sounds Present Extremeties Extremities Exam: Trace Edema Neurologic Neuro Exam: Alert, Awake Assessment/Plan Problem List: (1) Acute renal failure ICD Codes: N17.9 - Acute kidney failure, unspecified Status: Acute Plan: Patient has cardiorenal syndrome continue with Lasix for diuresis Monitor kidney function Cardiomyopathy with EF of 20% Avoid nephrotoxin Creatinine has declined to 2.23 diuresing well Ultrasound showed small right renal cyst- benign (2) CHF (congestive heart failure) ICD Codes: I50.9 - Heart failure, unspecified Status: Acute Plan: Severe cardiomyopathy EF 20% (3) A-fib ICD Codes: I48.91 - Unspecified atrial fibrillation Plan: Rate controlled (4) DM (diabetes mellitus) ICD Codes: E11.9 - Type 2 diabetes mellitus without complications Plan: Follow blood glucose Problem Qualifiers (1) Acute renal failure: Qualified Codes: N17.9 - Acute kidney failure, unspecified (2) CHF (congestive heart failure): Qualified Codes: I50.20 - Unspecified systolic (congestive) heart failure (3) A-fib: Qualified Codes: I48.2 - Chronic atrial fibrillation Wesley Palacios MD Feb 21, 2018 16:57
[2018-02-21] MEDS ORDERED: RIVAROXABAN 15 MG TAB PO SCH (18:00)
[2018-02-22 00:40] VITALS: BP 118/67; PULSE 68; RESP 19; TEMP 98.6; O2SAT 96
[2018-02-22 04:30] VITALS: BP 115/70; PULSE 65; RESP 20; TEMP 98; O2SAT 97
[2018-02-22 07:45] LABS: AUTOMATED NEUTROPHIL # 5.2 TH/MM3 (1.8-7.7); BASOPHIL # 0.1 TH/MM3 (0-0.2); BASOPHIL % 0.7 % (0.0-2.0); EOSINOPHIL # 0.1 TH/MM3 (0-0.4); EOSINOPHIL % 0.8 % (0.0-4.0); HEMATOCRIT 29.5 % (39.0-51.0); HEMOGLOBIN 9.2 GM/DL (13.0-17.0); LYMPH % 16.5 % (9.0-44.0); LYMPHOCYTE # 1.2 TH/MM3 (1.0-4.8); MEAN CORPUSCULAR HEMOGLOBIN 24.8 PG (27.0-34.0); MEAN CORPUSCULAR HGB CONC 31.1 % (32.0-36.0); MEAN PLATELET VOLUME 7.7 FL (7.0-11.0); PLATELET COUNT 234 TH/MM3 (150-450); RED BLOOD COUNT 3.69 MIL/MM3 (4.50-5.90); WHITE BLOOD COUNT 7.5 TH/MM3 (4.0-11.0)
[2018-02-22 07:46] LABS: BICARBONATE 26.7 MEQ/L (21.0-32.0); CALCIUM 9.1 MG/DL (8.5-10.1); CREATININE 1.83 MG/DL (0.60-1.30); MAGNESIUM 2.6 MG/DL (1.5-2.5)
[2018-02-22 08:00] VITALS: PULSE 75
[2018-02-22] MEDS: DOCUSATE SODIUM 50 MG/SENNA 8.6 MG TAB PO SCH (08:12)
[2018-02-22] MEDS: NYSTATIN SUSP 500,000 U/5 ML CUP SWISH-SPIT SCH (08:12)
[2018-02-22] MEDS: FUROSEMIDE 20 MG/2 ML VIAL IV PUSH SCH (08:13)
[2018-02-22] MEDS: SODIUM CHLORIDE 0.9% FLUSH 10 ML FLUSH IV FLUSH SCH (08:13)
[2018-02-22] MEDS: SOTALOL HCL 80 MG TAB PO SCH (08:13)
[2018-02-22] MEDS: INSULIN ASPART SUPPLEMENTAL SCALE SQ SCH (08:15)
[2018-02-22 08:28] VITALS: BP 120/64; PULSE 67; RESP 18; TEMP 98.7; O2SAT 100
[2018-02-22 09:13] LABS: BASOPHILS 1 % (0-2); CORRECTED NUCLEATED RBC 1 /100 WBC (0-0); LYMPHOCYTES 19 % (9-44); MONOCYTES 13 % (0-8); NUCLEATED RED BLOOD CELL 1 (0-0); POLYS (SEG NEUTROPHILS) 67 % (16-70)
[2018-02-22] MEDS ORDERED: BUME1TAB PO (10:10)
[2018-02-22] MEDS ORDERED: XARE15TA PO (10:10)
--- NOTE | 2018-02-22 10:15 | HHI.FF ---
Face to Face Verification Diagnosis: (1) Cardiomyopathy (2) CHF (congestive heart failure) (3) Acute renal failure Home Health Nursing Order: CHF education Nursing assessment with vital signs Instructions: Fluid restrictions of 1800 mL daily, as well as daily weights. Patient is to weigh himself daily, and if weight goes up by more than 3 pounds in 3 days, or more than 5 pounds in a week, to call snowblower mechanic. I have seen patient Alhaji Dumont on 02/22/18. My clinical findings support the need for the requested home health care services because: Med compliance is questionable Limited ability to care for self I certify that my clinical findings support that this patient is homebound because: Need for psychosocial assistance Wesley Stone MD Feb 22, 2018 10:15
--- NOTE | 2018-02-22 10:35 | HHI.NPPN ---
Subjective History of Present Illness Patient is 87 years old with cardiomyopathy EF of 20% chronic renal insufficiency Interval History Renal function has improved. Objective Data Data Vital Signs Date Time Temp Pulse Resp B/P (MAP) Pulse Ox O2 Delivery O2 Flow Rate FiO2 02/22/18 08:28 98.7 67 18 120/64 (82) 100 02/22/18 08:00 75 02/22/18 04:30 98.0 65 20 115/70 (85) 97 02/22/18 00:40 98.6 68 19 118/67 (84) 96 02/21/18 23:00 68 02/21/18 21:00 98.8 65 18 114/66 (82) 97 02/21/18 16:02 97.5 77 18 114/62 (79) 98 02/21/18 12:00 98.1 60 18 126/39 (68) 99 -: 02/22/18 0513 02/22/18 0513 Physical Exam General Appearance: Well Developed, Well Nourished Neck Neck Exam: Neck Supple Pulmonary Resp Exam: Clear Bilaterally, Breath Sounds Equal Cardiology CV Exam: Regular, Normal Sinus Rhythm Gastrointestinal/Abdomen GI Exam: Soft, Non-Tender, Bowel Sounds Present Extremeties Extremities Exam: Trace Edema Neurologic Neuro Exam: Alert, Awake Assessment/Plan Problem List: (1) Acute renal failure ICD Codes: N17.9 - Acute kidney failure, unspecified Status: Acute Plan: Patient has cardiorenal syndrome, continue with Lasix for diuresis Monitor kidney function Cardiomyopathy with EF of 20% Avoid nephrotoxins Improved GFR. (2) CHF (congestive heart failure) ICD Codes: I50.9 - Heart failure, unspecified Status: Acute Plan: Severe cardiomyopathy EF 20% (3) A-fib ICD Codes: I48.91 - Unspecified atrial fibrillation Plan: Rate controlled. On anticoagulation. (4) DM (diabetes mellitus) ICD Codes: E11.9 - Type 2 diabetes mellitus without complications Plan: Follow blood glucose Problem Qualifiers (1) Acute renal failure: Qualified Codes: N17.9 - Acute kidney failure, unspecified (2) CHF (congestive heart failure): Qualified Codes: I50.20 - Unspecified systolic (congestive) heart failure (3) A-fib: Qualified Codes: I48.2 - Chronic atrial fibrillation Himanshu Romero MD Feb 22, 2018 10:35
--- NOTE | 2018-02-23 00:15 | HHI.PR ---
Subjective Remarks Date of service 02/22/18 Patient says he is feeling well. Denies any chest pain or shortness of breath. Feels like going home. Objective Vital Signs Date Time Temp Pulse Resp B/P (MAP) Pulse Ox O2 Delivery O2 Flow Rate FiO2 02/22/18 08:28 98.7 67 18 120/64 (82) 100 02/22/18 08:00 75 02/22/18 04:30 98.0 65 20 115/70 (85) 97 02/22/18 00:40 98.6 68 19 118/67 (84) 96 I/O 02/22/18 02/22/18 02/22/18 02/23/18 02/23/18 02/23/18 07:00 15:00 23:00 07:00 15:00 23:00 Intake Total 100 ml Balance 100 ml Intake Oral 100 ml # Voids 2 # Bowel Movements 0 Result Diagram: 02/22/18 0513 02/22/18 05 Objective Remarks GENERAL: Patient appears comfortable. SKIN: Warm and dry. HEAD: Normocephalic. EYES: No scleral icterus. No injection or drainage. NECK: Supple, trachea midline. Marketed JVD. CARDIOVASCULAR: Regular rate and rhythm without murmurs, gallops, or rubs. RESPIRATORY: Breath sounds equal bilaterally. No accessory muscle use. GASTROINTESTINAL: Abdomen soft, non-tender, nondistended. MUSCULOSKELETAL: No cyanosis. +2 bilateral lower extremity edema, improved from yesterday. BACK: Nontender without obvious deformity. No CVA tenderness. A/P Assessment and Plan //Acute on chronic Systolic CHF (EF 20%0 with exacerbation Patient with dyspnea on exertion, bilateral lower extremity edema and BNP of 1727 IV Lasix, caution with diuresis given renal insufficiency EF 20% Cardiology consulted, Dr. Terrazas, appreciate recommendations Start sotalol per cardio Requesting US abd for ascites and paracenteses = Insufficient volume for paracentesis. Restart at a coagulation. = QRS of 210. Likely patient would benefit from biventricular pacer. Still with marked JVD on exam. Extra dose of IV Lasix today. Follow-up with cardiology as outpatient after discharge. = Discharge home with daily weights, fluid restrictions. Follow-up in cardiology as outpatient. //Acute on chronic renal insufficiency BUN/creatinine 60/2.95, baseline creatinine 1.9 Nephrology consulted, appreciate recommendations Monitor renal function = Improving. Appreciate nephrology assistance. //Ascites mild, US abd and if enough fluid can do paracentesis //Hypertension/hyperlipidemia/CAD Continue home medications once reconciled //Diabetes mellitus type 2 Holding home antihyperglycemics SSI Monitor blood glucose = Glycemia this morning. Likely rebound secondary to being on regular diet. Will place on diabetic diet. With fluid restrictions. //Hyperkalemia Potassium 5.3 with hemolysis noted Repeat BMP in am = Resolved. //Anemia H&H 9.5/31.1 Baseline 10 Monitor CBC Transfuse as needed //Heart healthy renal diet Electrolytes: As above Heparin Discharge Planning Likely discharge home today. Follow-up with cardiology as outpatient as patient will likely need biventricular pacer. discussed with patient and son that he will need follow-up with cardiology likely to get biventricular Wesley Stone MD Feb 23, 2018 00:14
--- NOTE | 2018-02-23 00:16 | HHI.DS ---
Discharge Summary Admission Date Feb 19, 2018 at 21:19 Discharge Date: Feb 22, 2018 Admitting Diagnosis CHF, acute renal failure (1) Cardiorenal syndrome ICD Code: I13.10 - Hypertensive heart and chronic kidney disease without heart failure, with stage 1 through stage 4 chronic kidney disease, or unspecified chronic kidney disease (2) Cardiomyopathy ICD Code: I42.9 - Cardiomyopathy, unspecified (3) A-fib ICD Code: I48.91 - Unspecified atrial fibrillation Procedures no invasive procedures Brief History - From Admission 87-year-old male with a PMH of HTN, Hyperlipidemia, CAD s/p Stent, Pacemaker ( [employer]), CHF (EF of 20%), Prostate CA and DM was sent to the ER by his cabin outfitter, Dr. Terrazas, for evaluation of possible anemia. The patient had outpatient lab work done and received a call to go to the emergency department for further evaluation. Revels the emergency department, the patient's H&H was 9.5/31.1, baseline approximately 10. The patient does complain of dyspnea on exertion and states he is having difficulty walking across the room without becoming shortness of breath. He denies any paroxysmal nocturnal dyspnea. Reports 3-4 days of bilateral lower extremity edema that is new for him. Denies any chest pain or shortness of breath at rest. No abdominal pain. No nausea/vomiting/diarrhea. No lateralizing signs/symptoms. CBC/BMP: 02/22/18 0513 02/22/18 0513 Significant Findings Laboratory Tests Test 02/20/18 05:34 02/20/18 11:26 02/21/18 06:09 02/22/18 05:13 Red Blood Count 3.49 MIL/MM3 (4.50-5.90) 3.69 MIL/MM3 (4.50-5.90) Hemoglobin 8.6 GM/DL (13.0-17.0) 9.2 GM/DL (13.0-17.0) Hematocrit 28.2 % (39.0-51.0) 29.5 % (39.0-51.0) Mean Corpuscular Hemoglobin 24.7 PG (27.0-34.0) 24.8 PG (27.0-34.0) Mean Corpuscular Hemoglobin Concent 30.5 % (32.0-36.0) 31.1 % (32.0-36.0) Red Cell Distribution Width 21.2 % (11.6-17.2) 21.0 % (11.6-17.2) Neutrophils (%) (Auto) 79.1 % (16.0-70.0) Lymphocytes (%) (Auto) 8.8 % (9.0-44.0) Monocytes (%) (Auto) 10.7 % (0.0-8.0) 13.0 % (0.0-8.0) Lymphocytes # (Auto) 0.6 TH/MM3 (1.0-4.8) Blood Urea Nitrogen 61 MG/DL (7-18) 54 MG/DL (7-18) 51 MG/DL (7-18) Creatinine 2.74 MG/DL (0.60-1.30) 2.23 MG/DL (0.60-1.30) 1.83 MG/DL (0.60-1.30) Random Glucose 136 MG/DL (74-106) 46 MG/DL (74-106) Estimat Glomerular Filtration Rate 22 ML/MIN (>89) 28 ML/MIN (>89) 35 ML/MIN (>89) Prothrombin Time 13.4 SEC (9.8-11.6) Albumin 3.3 GM/DL (3.4-5.0) Monocytes # (Auto) 1.0 TH/MM3 (0-0.9) Monocytes % 13 % (0-8) Nucleated Red Blood Cells 1 /100 WBC (0-0) Magnesium Level 2.6 MG/DL (1.5-2.5) Chloride Level 108 MEQ/L (98-107) Imaging Last Impressions Renal Ultrasound 02/20/18 Signed Impressions: Service Date/Time: February 21:30 - CONCLUSION: 1. No evidence of hydronephrosis. 2. 2 small right renal cystic structures which are benign in appearance. 3. Small bilateral pleural effusions and minimal fluid in the pelvis. Kirby George MD Abdomen Ultrasound 02/20/18 Signed Impressions: Service Date/Time: February 09:36 - CONCLUSION: Trace fluid around the liver in the right upper abdominal quadrant. Insufficient volume for percutaneous drainage. Virgilio Devries MD Chest X-Ray 02/19/18 0000 Signed Impressions: Service Date/Time: Monday, February 19, 2018 20:07 - CONCLUSION: 1. Cardiomegaly with mild edema pattern and trace pleural fluid. Joseph Balderas MD PE at Discharge GENERAL: male sitting up above CARDIOVASCULAR: Regular rate and rhythm. 3/6 DANIE RESPIRATORY: Breath sounds decreased. No wheezes, rales, or rhonchi. GASTROINTESTINAL: Abdomen soft, non-tender, nondistended. No hepato-splenomegaly , or palpable masses. No guarding. MUSCULOSKELETAL: Bilateral lower extremity pitting edema to the midshin. NEUROLOGICAL: Awake and alert. Cranial nerves II through XII intact. Motor and sensory grossly within normal limits. Normal speech. Hospital Course Patient presented with fluid overload, ascites CHF exacerbation. Acute kidney injury with creatinine up to 2.9. Chest x-ray with mild edema, however marked bilateral lower extremity edema on exam. Kidney ultrasound without hydronephrosis. Cardiology was consulted and followed during admission. Acute kidney injury secondary to acute cardiorenal syndrome improved with diuresis. Patient had been of the opinion that more fluid was good for him. Patient was instructed on fluid restrictions and daily weights. Patient will follow-up with cardiology as outpatient. It is recommended that patient would benefit from biventricular pacer. For problem-based summary from most recent progress note, please see below. //Acute on chronic Systolic CHF (EF 20%0 with exacerbation Patient with dyspnea on exertion, bilateral lower extremity edema and BNP of 1727 IV Lasix, caution with diuresis given renal insufficiency EF 20% Cardiology consulted, Dr. Terrazas, appreciate recommendations Start sotalol per cardio Requesting US abd for ascites and paracenteses = Insufficient volume for paracentesis. Restart at a coagulation. = QRS of 210. Likely patient would benefit from biventricular pacer. Still with marked JVD on exam. Extra dose of IV Lasix today. Follow-up with cardiology as outpatient after discharge. = Discharge home with daily weights, fluid restrictions. Follow-up in cardiology as outpatient. //Acute on chronic renal insufficiency BUN/creatinine 60/2.95, baseline creatinine 1.9 Nephrology consulted, appreciate recommendations Monitor renal function = Improving. Appreciate nephrology assistance. //Ascites mild, US abd and if enough fluid can do paracentesis //Hypertension/hyperlipidemia/CAD Continue home medications once reconciled //Diabetes mellitus type 2 Holding home antihyperglycemics SSI Monitor blood glucose = Glycemia this morning. Likely rebound secondary to being on regular diet. Will place on diabetic diet. With fluid restrictions. //Hyperkalemia Potassium 5.3 with hemolysis noted Repeat BMP in am = Resolved. //Anemia H&H 9.5/31.1 Baseline 10 Monitor CBC Transfuse as needed //Heart healthy renal diet Electrolytes: As above Heparin Discharge Planning Likely discharge home today. Follow-up with cardiology as outpatient as patient will likely need biventricular pacer. discussed with patient and son that he will need follow-up with cardiology likely to get biventricular Pt Condition on Discharge: Good Discharge Disposition: Disch w/ Home Health Serv Discharge Time: > 30 minutes Discharge Instructions DIET: Follow Instructions for: Heart Healthy Diet, Diabetic Diet Fluid Restrictions: 1800ML Activities you can perform: Regular-No Restrictions Follow up Referrals: Cardiology - 1 Week with Alka Terrazas MD Cardiology, Interventional Nephrology - 1 Week with Wesley Palacios MD PCP Follow-up - [facility] New Medications: Bumetanide (Bumetanide) 1 Mg Tab 1 MG PO BID, #60 TAB 0 Refills Rivaroxaban (Xarelto) 15 Mg Tab 15 MG PO DAILY@1800 for Blood Clot Prevention for 30 Days, TAB Continued Medications: Fenofibrate (Tricor) 48 Mg Tab 48 MG PO DAILY, #30 TAB 0 Refills Tke with food. Glipizide (Glipizide) 5 Mg Tab 5 MG PO DAILY for Blood Sugar Management, #30 TAB 0 Refills Take 30 minutes before a meal Levothyroxine (Levothyroxine) 88 Mcg Tab 88 MCG PO DAILY for Thyroid, #30 TAB 0 Refills Ranitidine (Ranitidine) 150 Mg Tab 150 MG PO DAILY for Heartburn Management, #30 TAB 0 Refills Sotalol (Sotalol) 80 Mg Tab 40 MG PO BID for Regulate Heart Beat, #60 TAB 0 Refills Spironolactone (Spironolactone) 25 Mg Tab 25 MG PO DAILY, #30 TAB 0 Refills Discontinued Medications: Torsemide (Torsemide) 20 Mg Tab 20 MG PO DAILY, #30 TAB 0 Refills Wesley Stone MD Feb 23, 2018 00:16
== END 2018-02-22 11:31 | disposition home health service (06) | DRG 291 ==
LOC: NEPE 17:56 → NEDA 21:19 → NEDH 02-20 01:31 → N05A 02-20 14:42
PROVIDERS: ADMIT Internal Medicine; ATTEND Internal Medicine
DX: I13.0 Hypertensive heart and chronic kidney disease with heart failure and stage 1 through stage 4 chronic kidney disease, or unspecified chronic kidney disease (principal); I50.23 Acute on chronic systolic (congestive) heart failure; N17.9 Acute kidney failure, unspecified; R18.8 Other ascites; I95.9 Hypotension, unspecified; E11.22 Type 2 diabetes mellitus with diabetic chronic kidney disease; I42.9 Cardiomyopathy, unspecified; E87.5 Hyperkalemia; I48.2 Chronic atrial fibrillation; R17 Unspecified jaundice; E83.41 Hypermagnesemia; R74.0 Nonspecific elevation of levels of transaminase and lactic acid dehydrogenase [LDH]; M19.90 Unspecified osteoarthritis, unspecified site; E78.00 Pure hypercholesterolemia, unspecified; N18.9 Chronic kidney disease, unspecified; K21.9 Gastro-esophageal reflux disease without esophagitis; E07.9 Disorder of thyroid, unspecified; I25.10 Atherosclerotic heart disease of native coronary artery without angina pectoris; J44.9 Chronic obstructive pulmonary disease, unspecified; B37.9 Candidiasis, unspecified; R30.0 Dysuria; E78.5 Hyperlipidemia, unspecified; I65.29 Occlusion and stenosis of unspecified carotid artery; R01.1 Cardiac murmur, unspecified; D63.1 Anemia in chronic kidney disease; N28.1 Cyst of kidney, acquired; Z95.5 Presence of coronary angioplasty implant and graft; Z95.810 Presence of automatic (implantable) cardiac defibrillator; Z85.46 Personal history of malignant neoplasm of prostate; Z79.01 Long term (current) use of anticoagulants; R26.2 Difficulty in walking, not elsewhere classified
CPT/HCPCS: 71045; 76705; 76775; 80048; 80053; 80069; 82948; 83690; 83735; 83880; 84484; 85007; 85025; 85027; 85610; 85730; 86850; 86900; 86901; 93005; J1644; J1815; J1940

== ENCOUNTER → 2018-02-19 | Outpatient (CLI) | payer MEDICARE, OTHER ==
[~2018-02-19] MED LIST changes: +BUME1TAB PO; +SOTA80TA PO; +SPIR25TA PO; +TORS20TA PO
[2018-02-19 14:31] LABS: AUTOMATED NEUTROPHIL # 4.1 TH/MM3 (1.8-7.7); BASOPHIL # 0.1 TH/MM3 (0-0.2); EOSINOPHIL % 0.8 % (0.0-4.0); HEMOGLOBIN 8.6 GM/DL (13.0-17.0); LYMPHOCYTE # 0.7 TH/MM3 (1.0-4.8); MEAN CELL VOLUME 79.8 FL (80.0-100.0); MEAN CORPUSCULAR HEMOGLOBIN 24.4 PG (27.0-34.0); MEAN CORPUSCULAR HGB CONC 30.6 % (32.0-36.0); MEAN PLATELET VOLUME 7.4 FL (7.0-11.0); MONO % 10.2 % (0.0-8.0); MONOCYTE # 0.6 TH/MM3 (0-0.9); PLATELET COUNT 225 TH/MM3 (150-450); RED BLOOD COUNT 3.51 MIL/MM3 (4.50-5.90); RED CELL DISTRIBUTION WIDTH 21.8 % (11.6-17.2); WHITE BLOOD COUNT 5.5 TH/MM3 (4.0-11.0)
[2018-02-19 14:49] LABS: ALBUMIN 3.6 GM/DL (3.4-5.0); ALT (GPT) 134 U/L (12-78); AST (GOT) 102 U/L (15-37); BICARBONATE 26.5 MEQ/L (21.0-32.0); BLOOD UREA NITROGEN 58 MG/DL (7-18); CALCIUM 8.8 MG/DL (8.5-10.1); CHLORIDE 105 MEQ/L (98-107); CREATININE 2.61 MG/DL (0.60-1.30); GLOMERULAR FILTRATION RATE 23 ML/MIN (>89); GLUCOSE,FASTING 107 MG/DL (74-99); SODIUM (NA) 139 MEQ/L (136-145)
[2018-02-19 14:51] LABS: ALKALINE PHOSPHATASE 63 U/L (45-117); TOTAL BILIRUBIN ADULT 0.7 MG/DL (0.2-1.0); TOTAL PROTEIN 6.7 GM/DL (6.4-8.2)
== END ==
LOC: CLAB 13:48
PROVIDERS: ATTEND Internal Medicine Cardiovascular Disease
DX: R17 Unspecified jaundice (principal); D64.9 Anemia, unspecified
CPT/HCPCS: 36415; 80053; 85025